=== PATIENT | male | born 1975 | race Caucasian/White ===

== ENCOUNTER 2020-04-29 11:48 | Outpatient (REF) | payer MEDICARE, MEDICAID, SELFPAY ==
--- NOTE | 2020-04-29 11:57 | ECG_ITS ---
Test Reason : HIGH RISK MEDICATION Blood Pressure : / mmHG Vent. Rate : 094 BPM Atrial Rate : 094 BPM P-R Int : 136 ms QRS Dur : 082 ms QT Int : 348 ms P-R-T Axes : 076 081 038 degrees QTc Int : 435 ms Normal sinus rhythm Normal ECG When compared with ECG of 27-AUG-2019 13:00, No significant change was found Referred By: Alex Bacon Electronically Signed By:KAM RIZZO
[2020-04-29 13:34] LABS: MANUAL DIFF FLAG NO
[2020-04-29 13:52] LABS: Basophils Absolute Auto 0.1 X10*3/uL (0.0-0.2); Basophils Percent Auto 0.7 % (0-2); Eosinophils Absolute Auto 0.3 X10*3/uL (0.0-0.4); Eosinophils Percent Auto 3.1 % (0-4); Hematocrit 46.9 % (42-52); Hemoglobin 16.2 g/dl (14.0-18.0); Imm Gran Abs Auto 0.02 X10*3/uL (0.00-0.03); Imm Gran Pct Auto 0.2 % (0.0-0.4); Lymphocytes Absolute Auto 1.1 X10*3/uL (1.2-4.9); Lymphocytes Percent Auto 13.5 % (20-40); Mean Corpuscular HGB Conc 34.5 g/dl (31.0-36.0); Mean Corpuscular Hemoglobin 33.1 pg (27.0-33.0); Mean Corpuscular Volume 95.9 fL (80-98); Mean Platelet Volume 9.4 fL (9.4-12.4); Monocytes Absolute Auto 0.5 X10*3/uL (0.1-1.2); Monocytes Percent Auto 6.2 % (2-11); Neutrophils Absolute Auto 6.2 X10*3/uL (2.0-8.3); Neutrophils Percent Auto 76.3 % (45-73); Platelet Count 304 X10*3/uL (160-400); Red Blood Count 4.89 X10*6/uL (4.60-5.80); Red Cell Distribution Width 11.4 % (11.0-16.0); White Blood Count 8.1 X10*3/uL (4.8-10.8)
[2020-04-29 14:07] LABS: Estimated Average Glucose 97 mg/dL; Hemoglobin A1C 134.0023 umol/L
[2020-04-29 14:12] LABS: Cholesterol 183 mg/dL; HDL Cholesterol 46 mg/dL; LDL Cholesterol Calculated 105 mg/dl; Triglycerides 162 mg/dL
[2020-04-30 17:08] LABS: Prolactin 12.8 ng/mL (2.0-18.0)
== END 2020-04-29 11:49 | disposition home or self-care (01) ==
LOC: HO.LAB 11:48
PROVIDERS: Visit Provider Psychiatry & Neurology Child & Adolescent Psychiatry
DX: F41.1 Generalized anxiety disorder (principal); Z79.899 Other long term (current) drug therapy
CPT/HCPCS: 36415; 80061; 83036; 84146; 85025; 93005

== ENCOUNTER 2022-01-10 18:50 | Emergency (ER) | payer MEDICARE, MEDICAID, SELFPAY ==
--- NOTE | 2022-01-10 19:07 | ED.ALLEREA ---
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 Caregiver provided patient's EpiPen and EMS provided 50 mg of Benadryl IM and noted that before the Benadryl he had some mild wheezing and the hives and afterwards the wheezing resolved. Related Data Previous Rx's Medication Instructions Recorded epinephrine 0.3 mg/0.3 mL 0.3 mg (0.3 mL) IM Q5M PRN 01/10/22 injection, auto-injector (EpiPen anaphylaxis #2 ea 2-Greg) Allergies Allergy/AdvReac Type Severity Reaction Status Date / Time peanut [PEANUT] Allergy Severe ANAPHYLAXIS Unverified 12/10/19 14:42 tree nut [TREE NUT] Allergy Severe ANAPHYLAXIS Unverified 12/10/19 14:42 mustard [MUSTARDS] Allergy Unknown HIVES Unverified 12/10/19 14:42 sesame seed [SESAME SEED] Allergy Unknown HIVES Unverified 12/10/19 14:42 shellfish derived Allergy Unknown HIVES Unverified 12/10/19 14:42 [SHELLFISH DERIVED] walnut [WALNUT] Allergy Unknown UNK Unverified 12/10/19 14:42 Review of Systems Review of Systems: Pertinent positives and negatives as stated in HPI 10 point review of systems is otherwise negative. PMFSH Past Medical History Source: nursing notes reviewed Physical Exam ED Vital Signs: Vital Signs - 24 hr 01/10/22 19:16 01/10/22 20:04 Temperature 97.9 F Pulse Rate 93 88 Respiratory Rate 20 18 Blood Pressure 122/77 115/69 Pulse Oximetry 97 98 Oxygen Delivery Method Room Air Room Air BMI result Body Mass Index 26.7 VITAL SIGNS: Reviewed. GENERAL: Well developed, well nourished, in no acute distress. HEAD: Normocephalic/atraumatic EYES: PERRLA, EOMI, mild periorbital swelling EARS: Ext canals without abnormality OROPHARYNX: no oral lesions noted, posterior pharynx clear, no tongue or lip swelling NECK: Supple, no adenopathy LUNGS: Normal breath sounds, no wheeze, no stridor. SpO2<97> CARDIOVASCULAR: Regular rate and rhythm without noted murmurs ABDOMEN: Soft, non-tender, non-distended with bowel sounds. MUSCULOSKELETAL: No tenderness, deformities, or effusions noted on gross inspection. EXTREMITIES: No cyanosis, clubbing or edema. SKIN: Inspection of the skin reveals no rashes NEUROLOGIC: Alert and strength and sensation to light touch were grossly intact x 4. Course Course Course Narrative: 46-year-old male with history and clinical presentation consistent with allergic reaction to mustard, received EpiPen as well as IM Benadryl and will be observed for 4 hours from 1800. Patient has some mild periorbital swelling but no other evidence to suggest angioedema or anaphylaxis. The hives have completely resolved. Patient signed out to Dr. Hernadez. Patient remains hemodynamically stable and without evidence of angioedema or anaphylaxis. Discharge Plan Discharge Clinical Impression: Allergic reaction Patient Disposition: Still a Patient Instructions: General Allergic Reaction (ED) Additional Instructions: Return to the ER for any recurrence of symptoms. Prescriptions: New epinephrine [EpiPen 2-Greg] 0.3 mg/0.3 mL auto-injector 0.3 mg IM Q5M PRN (Reason: anaphylaxis) Qty: 2 0RF
[2022-01-10 19:16] VITALS: BP 122/76; BP 122/77; PULSE 91; PULSE 93; RESP 20; TEMP 36.6; O2SAT 97; O2SAT 98; BMI 26.7
[2022-01-10 20:04] VITALS: BP 115/69; PULSE 88; RESP 18; O2SAT 98
--- NOTE | 2022-01-10 20:05 | PC.NURSE ---
Pt VSS, resting comfortably in bed at this time. Pt denies any CP or SOB. Skin is PWD with no signs of hives or rash.
--- OUTSIDE RECORDS SUMMARY | 2022-01-10 20:20 | XMS_ITS | Continuity of Care Document ---
:1975 Author Organization [facility] Address [address] [place] [address]- Care Team Providers Name Role Phone Jose Ulloa MD Primary Care Physician Encounter [facility] Date(s): 08/20/19 - 08/27/19 [facility] [address] [place] [address]- Attending Physician: Jose Ulloa MD Allergies, Adverse Reactions, Alerts Substance Reaction Severity Status shellfish Active Fish Active Lobster Active Nuts not confirmed with allergy tests Active Immunizations Given and Recorded Vaccine Date Status Refusal Reason influenza virus vaccine, inactivated1 12/18/18 Given influenza virus vaccine, inactivated2 03/06/18 Given influenza virus vaccine, inactivated3 02/02/15 Given influenza virus vaccine, inactivated 02/15/14 Given influenza virus vaccine, inactivated4 02/12/13 Given influenza virus vaccine, inactivated5 01/09/12 Given influenza virus vaccine, inactivated6 01/26/11 Given Afluria (oldterm)7 02/28/17 Given tetanus/diphtheria/pertussis, acel(Tdap)8 01/09/12 Given Hepatitis B Vaccine (old term)9 11/08/11 Given Hepatitis B Vaccine (old term)10 06/07/11 Given hepatitis B adult [id number] 05/09/11 Given Pneumococcal Vaccine (oldterm) 03/25/05 Given tetanus-diphtheria toxoids (Td) 03/25/03 Given 1Result Comment: [id number] Comment: [03/06/2018] [id number] Comment: [02/02/2015] all screening questions [id number] Note: vis Admin Note: vis [id number] Note: VIS:Result Comment: [02/28/2017] [facility]: [id number] Note: VIS [id number] Note: VIS [id number] Note: VIS given11 Admin Note: VIS [address] dose Medications acetaminophen 325 mg oral tablet 650 mg, 2, tablet, By Mouth, Every 8 hours, PRN, not to exceed 4000 mg/day Call after 72 hours if not resolved, # 18 tablet, Refills 5, Tot. Refills 5, Maintenance, for fever, 06/11/19 9:27:00 EDT, Route to Pharmacy Electronically, [facility]-... Start Date: 06/11/19 Stop Date: 06/29/19 Status: OrderedAmmonium Lactate 12% Topical Topically, 2 times a day, 0 Refills, Maintenance Start Date: 02/28/17 Status: Orderedbacitracin topical 500 u/gm ointment See Instructions, APPLY A THIN LAYER TWICE A DAY NEEDED FOR MINOR CUTS AND SCRAPES TO PREVENT INFECTI, # 28 Gm, 1 Refills, Acute, [facility], 15, APPLY A THIN LAYER TWICE A DAY NEEDEDFOR MINOR CUTS AND SCRAPES TO PREVENT INFECTI, 16... Start Date: 05/24/19 Status: OrderedBetamethasone Valerate 0.1% Lotion Topically, 2 times a day, 0 Refills, Maintenance, 02/28/17 15:21:03 Start Date: 02/28/17 Status: Orderedcalamine-pramoxine 3%-1% topical lotion 1 application, Topically, 4 times a day, PRN as needed for itching, apply to affected area 4 times aday x 10 days, # 118 mL, 0 Refills, Maintenance, 09/05/18 8:51:29 EDT, Lotion, 1 application Topically 4 times a day,PRN:as needed for itching,Instr:a... Start Date: 09/05/18 Status: OrderedCeleXA 20 mg oral tablet 20 mg, 1, tablet, By Mouth, Daily at bedtime, Decrease celexa from 40 mg to 20 mg daily at bedtime, # 30 tablet, Refills 2, Tot. Refills 2, Maintenance, 08/20/19 15:32:00 EDT, Route to Pharmacy Electronically, [facility]-[id number], 166,... Start Date: 08/20/19 Status: OrderedCelexa Tablet 60 mg, Daily at bedtime, Refills 0, Tot. Refills 0, Maintenance, 06/06/06 14:39:21 Start Date: 06/06/06 Status: OrderedClaritin 10 mg oral tablet 10 mg, 1, tablet, By Mouth, Daily at bedtime, # 30 tablet, Refills 11, Tot. Refills 11, Maintenance,12/18/18 10:07:43 EDT, Route to Pharmacy Electronically, [facility]-[id number], [facility] Start Date: 12/18/18 Status: OrderedDesenex Foot 2% powder 1 application, Topically, 2 times a day, to affected area, # 90 Gm, 0 Refills, Maintenance, 198:52:49 EDT, Powder, 1 application Topically 2 times a day,Instr:to affected area Start Date: 09/05/18 Status: OrderedEpiPen 2-Greg 0.3 mg injectable kit See Instructions, Intramuscular Once in case of life threatening allergy, # 1 each, 1 Refills, Soft Stop, 03/06/18 11:43:51 EST Start Date: 03/06/18 Status: OrderedFiber Lax 625 mg oral tablet 625 mg, By Mouth, Daily, take one tablet every day by mouth at 4 pm, # 30 each, 11 Refills, Maintenance, 12/18/18 10:07:40 EDT Start Date: 12/18/18 Status: OrderedFlonase 50 mcg/inh nasal spray 1 sprays, Nares, Both, 2 times a day, in each nostril, # 2 each, 0 Refills, Maintenance, 09/05/18 8:52:13 EDT, [facility] [place], 1 sprays Nares, Both 2 times a day,x30 days,Instr:in each nostril Start Date: 09/05/18 Stop Date: 10/05/18 Status: OrderedImodium A-D 2 mg oral tablet 2 mg, 1, tablet, By Mouth, 3 times a day, PRN, # 30 tablet, Refills 3, Tot. Refills 3, Maintenance, Loose Stool, 05/10/17 14:08:46 EST, Print Requisition Start Date: 2/16/18 Status: OrderedImodium A-D 2 mg oral tablet 2 mg, 1, tablet, By Mouth, 3 times a day, Take 1 tablet PO q4h for loose stools, not to exceed 3 doses daily., # 30 tablet, Refills 0, Tot. Refills 0, Maintenance, 09/05/18 8:52:32 EDT, Route to Pharmacy Electronically, [facility]- [id number], [facility]... Start Date: 09/05/18 Status: Orderedlisinopril 10 mg oral tablet 10 mg, 1, tablet, By Mouth, Daily, # 30 tablet, Refills 11, Tot. Refills 11, Maintenance, 12/18/18 10:07:42 EDT, Route to Pharmacy Electronically, [facility]_ID- [id number], [facility] Start Date: 12/18/18 Status: OrderedLubriderm Daily Moisturizer topical lotion 1 application, Topically, 2 times a day, PRN for dry skin, # 360 mL, 0 Refills, Maintenance, 09/05/18 8:52:02 EDT, Lotion, 1 application Topically 2 times a day,x30 days,PRN:for dry skin Start Date: 09/05/18 Stop Date: 10/05/18 Status: OrderedRisperDAL 0.5 mg oral tablet See Instructions, PRN, tab BID, # 60 each, Refills 0, Tot. Refills 0, Maintenance, take at 4pm and 7pm, 09/05/18 8:53:06 EDT, Instructions Replace Required Details, Route to Pharmacy Electronically, [facility]_ID-[id number], [facility] Start Date: 09/05/18 Status: OrderedVitamin D3 1000 intl units oral capsule See Instructions, 1 capsule By Mouth Daily in pm, # 30 tablet, 11 Refills, Maintenance, 12/18/18 10:07:41 EDT, Capsule Start Date: 12/18/18 Status: Ordered Problem List Condition Effective Dates Status Health Status Informant Anemia(Confirmed) Active Asthma(Confirmed) Active Atopic eczema(Confirmed) Active Autistic disorder(Confirmed) Active Eruption(Confirmed) Active External hemorrhoids(Confirmed) Active High triglycerides(Confirmed) 04/16/12 Active HTN - Hypertension(Confirmed) Active Mental retardation(Confirmed) Active Tinea corporis(Confirmed) 05/19/12 Active Social History Social History Type Response Smoking Status Never smoker entered on: 08/01/16 Sex
--- OUTSIDE RECORDS SUMMARY | 2022-01-10 20:20 | XMS_ITS | Continuity of Care Document ---
:1975 Author Organization [facility] Address [address] [place] [address]- Care Team Providers Name Role Phone Jose Ulloa MD Primary Care Physician Encounter [facility] Date(s): 06/03/20 - 07/03/20 [facility] [address] [place], [place] [address] Allergies, Adverse Reactions, Alerts Substance Reaction Severity [...] (old term)10 06/07/11 Given hepatitis B adult [id number] 05/09/11 Given Pneumococcal Vaccine (oldterm) 03/25/05 Given tetanus-diphtheria toxoids (Td) 03/25/03 Given 1Result Comment: [id number] Comment: [03/06/2018] [id number] Comment: [02/02/2015] all screening questions [id number] Note: vis Admin Note: vis [id number] Note: VIS:Result Comment: [02/28/2017] [facility]: [id number] Note: VIS [id number] Note: VIS [id number] Note: VIS given11 Admin Note: VIS [address] dose Medications acetaminophen 325 mg oral tablet 650 mg, 2, tablet, By Mouth, Every 8 hours, PRN, not to exceed 4000 mg/day Call after 72 hours if not resolved, # 18 tablet, Refills 5, Tot. Refills 5, Maintenance, for fever, 06/11/19 9:27:00 EDT, Route to Pharmacy Electronically, [facility]-... Start Date: 06/11/19 Stop Date: 06/29/19 Status: OrderedAmmonium Lactate 12% Topical Topically, 2 times a day, 0 Refills, Maintenance Start Date: 02/28/17 Status: Orderedbacitracin topical 500 u/gm ointment See Instructions, APPLY A THIN LAYER TWICE A DAY NEEDED FOR MINOR CUTS AND SCRAPES TO PREVENT INFECTI, # 28 Gm, 1 Refills, Physician Stop 05/24/21 12:00:00 EST, 06/15/20 9:09:00 EDT, [facility]-[id number], 15, APPLY A THIN LAYER TWICE... Start Date: 06/15/20 Stop Date: 05/24/21 Status: OrderedBetamethasone Valerate 0.1% Lotion Topically, 2 [...] needed for itching,Instr:a... Start Date: 09/05/18 Status: Orderedcitalopram 20 mg oral tablet 1 tablet, By Mouth, Daily at bedtime, # 28 tablet, 12 Refills, Maintenance, 06/14/20 14:20:00 EDT, [facility]-[id number], 166, cm, 12/29/19 11:45:00 EDT, Height Start Date: 06/14/20 Status: OrderedDesenex Foot 2% powder 1 application, [...] mouth at 4 pm, # 30 each, 5 Refills, Maintenance, 06/21/20 12:01:00 EDT, [facility]- [id number], 166, cm, 12/29/19 11:45:00 EDT, Height Start Date: 06/21/20 Status: OrderedFlonase 50 mcg/inh nasal spray 1 sprays, Nares, Both, 2 times a day, in each nostril, # 2 each, 0 Refills, Maintenance, 09/05/18 8:52:13 EDT, [place], 1 sprays Nares, Both 2 times a day,x30 days,Instr:in each nostril Start Date: 09/05/18 Stop Date: 10/05/18 Status: OrderedImodium A-D 2 mg oral tablet 2 mg, 1, tablet, By Mouth, 3 times a day, Take 1 tablet PO q4h for loose stools, not to exceed 3 doses daily., # 30 tablet, Refills 0, Tot. Refills 0, Maintenance, 06/14/20 15:46:00 EDT, Route to Pharmacy Electronically, [facility]... Start Date: 06/14/20 Status: OrderedImodium A-D 2 mg oral tablet 2 mg, 1, tablet, By Mouth, 3 times a day, PRN, # 30 tablet, Refills 3, Tot. Refills 3, Maintenance, Loose Stool, 05/10/17 14:08:46 EST, Print Requisition Start Date: 05/10/17 Status: Orderedlisinopril 10 mg oral tablet 10 mg, 1, tablet, By Mouth, Daily, # 30 tablet, Refills 5, Tot. Refills 5, Maintenance, 06/24/20 10:49:00 EDT, Route to Pharmacy Electronically, [facility], 166, cm, 12/29/19 11:45:00 EDT, Height Start Date: 06/24/20 Status: OrderedLubriderm Daily Moisturizer topical lotion 1 application, Topically, 2 times a day, PRN for dry skin, # 360 mL, 0 Refills, Maintenance, 09/05/18 8:52:02 EDT, Lotion, 1 application Topically 2 times a day,x30 days,PRN:for dry skin Start Date: 09/05/18 Stop Date: 10/05/18 Status: Orderedohm Allergy Relief 10 mg oral tablet 1 tablet, By Mouth, Daily at bedtime, # 28 tablet, 12 Refills, Maintenance, 06/14/20 14:20:00 EDT, [facility], 166, cm, 12/29/19 11:45:00 EDT, Height Start Date: 06/14/20 Status: OrderedRisperDAL 0.5 mg oral tablet See Instructions, PRN, tab BID, # 60 each, Refills 0, Tot. Refills 0, Maintenance, take at 4pm and 7pm, 06/21/20 12:01:00 EDT, Instructions Replace Required Details, Route to Pharmacy Electronically, [facility], 166, cm, ... Start Date: 06/21/20 Status: OrderedVitamin D3 1000 intl units oral capsule See Instructions, 1 capsule By Mouth Daily in pm, # 30 tablet, 5 Refills, Maintenance, 01/27/20 9:56:00 EST, Capsule, [facility], 166, cm, 12/29/19 11:45:00 EDT, Height Start Date: 01/27/20 Status: Ordered Problem List Condition Effective Dates Status Health Status Informant Anemia(Confirmed) Active Asthma(Confirmed) Active Atopic eczema(Confirmed) Active Autistic disorder(Confirmed) Active Eruption(Confirmed) Active External hemorrhoids(Confirmed) Active High triglycerides(Confirmed) 04/16/12 Active HTN - Hypertension(Confirmed) Active Mental retardation(Confirmed) Active Tinea corporis(Confirmed) 05/19/12 Active Social History Social History Type Response Smoking Status Never smoker entered on: 08/01/16 Sex
--- OUTSIDE RECORDS SUMMARY | 2022-01-10 20:20 | XMS_ITS | Continuity of Care Document ---
:1975 Author Organization [facility] Address [address] [place] [address]- Care Team Providers Name Role Phone Jose Ulloa MD Primary Care Physician Encounter [facility] Date(s): 01/03/20 - 02/02/20 [facility] [address], [place] [address] Allergies, Adverse Reactions, Alerts Substance Reaction [...] (old term)10 06/07/11 Given hepatitis B adult [id number] 05/09/11 Given Pneumococcal Vaccine (oldterm) 03/25/05 Given tetanus-diphtheria toxoids (Td) 03/25/03 Given 1Result Comment: [id number] Comment: [03/06/2018] [id number] Comment: [02/02/2015] all screening questions [id number] Note: vis Admin Note: vis [id number] Note: VIS:Result Comment: [02/28/2017] [facility]: [id number] Note: VIS [id number] Note: VIS [id number] Note: VIS given11 Admin Note: VIS [address] dose Medications acetaminophen 325 mg oral tablet 650 mg, 2, tablet, By Mouth, Every 8 hours, PRN, not to exceed 4000 mg/day Call after 72 hours if not resolved, # 18 tablet, Refills 5, Tot. Refills 5, Maintenance, for fever, 06/11/19 9:27:00 EDT, Route to Pharmacy Electronically, [facility]-... Start Date: 06/11/19 Stop Date: 06/29/19 Status: OrderedAmmonium Lactate 12% Topical Topically, 2 times a day, 0 Refills, Maintenance Start Date: 02/28/17 Status: Orderedbacitracin topical 500 u/gm ointment See Instructions, APPLY A THIN LAYER TWICE A DAY NEEDED FOR MINOR CUTS AND SCRAPES TO PREVENT INFECTI, # 28 Gm, 1 Refills, Acute, [facility]-[id number], 15, APPLY A THIN LAYER TWICE A [...] daily at bedtime, # 30 tablet, Refills 5, Tot. Refills 5, Maintenance, 01/14/20 7:35:00 EDT, Route to Pharmacy Electronically, [facility]-[address], 166, c... Start Date: 01/14/20 Status: OrderedCelexa Tablet 60 mg, Daily at bedtime, Refills 0, Tot. Refills 0, Maintenance, 06/06/06 14:39:21 Start Date: 06/06/06 Status: OrderedClaritin 10 mg oral tablet 10 mg, 1, tablet, By Mouth, Daily at bedtime, # 30 tablet, Refills 5, Tot. Refills 5, Maintenance, 12/30/19 14:05:00 EDT, Route to Pharmacy Electronically, [facility], 166, cm, 12/29/19 11:45:00 EDT, Height Start Date: 12/30/19 Status: OrderedDesenex Foot 2% powder 1 application, [...] pm, # 30 each, 5 Refills, Maintenance, 01/18/20 12:10:00 EDT, [facility] [address], 166, cm, 12/29/19 11:45:00 EDT, Height Start Date: 01/18/20 Status: OrderedFlonase 50 mcg/inh nasal spray 1 sprays, Nares, Both, 2 times a day, in each nostril, # 2 each, 0 Refills, Maintenance, 09/05/18 8:52:13 EDT, [place], 1 sprays Nares, Both 2 times a day,x30 days,Instr:in each nostril Start Date: 09/05/18 Stop Date: 10/05/18 Status: OrderedImodium A-D 2 mg oral tablet 2 mg, 1, tablet, By Mouth, 3 times a day, PRN, # 30 tablet, Refills 3, Tot. Refills 3, Maintenance, Loose Stool, 05/10/17 14:08:46 EST, Print Requisition Start Date: 05/10/17 Status: OrderedImodium A-D 2 mg oral tablet 2 mg, 1, tablet, By Mouth, 3 times a day, Take 1 tablet PO q4h for loose stools, not to exceed 3 doses daily., # 30 tablet, Refills 0, Tot. Refills 0, Maintenance, 09/05/18 8:52:32 EDT, Route to Pharmacy Electronically, [facility]- [id number], [facility] Start Date: 09/05/18 Status: Orderedlisinopril 10 mg oral tablet 10 mg, 1, tablet, By Mouth, Daily, # 30 tablet, Refills 5, Tot. Refills 5, Maintenance, 01/26/20 13:34:00 EST, Route to Pharmacy Electronically, [facility], 166, cm, 12/29/19 11:45:00 EDT, Height Start Date: 01/26/20 Status: OrderedLubriderm Daily Moisturizer topical lotion 1 [...] Replace Required Details, [id number] Start Date: 09/05/18 Status: OrderedVitamin D3 1000 intl units oral capsule See Instructions, 1 capsule By Mouth Daily in pm, # 30 tablet, 5 Refills, Maintenance, 01/27/20 9:56:00 EST, Capsule, [facility], 166, cm, 12/29/19 11:45:00 EDT, Height Start [...]
--- OUTSIDE RECORDS SUMMARY | 2022-01-10 20:20 | XMS_ITS | Continuity of Care Document ---
:1975 Author Organization [facility] Address [address] [place] [address]- Care Team Providers Name Role Phone Jose Ulloa MD Primary Care Physician Encounter [facility] Date(s): 07/22/20 - 08/21/20 [facility] [address] [place], [place] [address] Allergies, Adverse Reactions, Alerts Substance Reaction Severity [...] (old term)10 06/07/11 Given hepatitis B adult 05/09/11 Given Pneumococcal Vaccine (oldterm) 03/25/05 Given tetanus-diphtheria toxoids (Td) 03/25/03 Given 1Result Comment: [id number] Comment: [03/06/2018] [id number] Comment: [02/02/2015] all screening questions [id number] Note: vis Admin Note: vis [id number] Note: VIS:Result Comment: [02/28/2017] [facility]: [id number] Note: VIS [id number] Note: VIS [id number] Note: VIS given11 Admin Note: VIS [address] dose Medications acetaminophen 325 mg oral tablet 650 mg, 2, tablet, By Mouth, Every 8 hours, PRN, not to exceed 4000 mg/day Call after 72 hours if not resolved, # 18 tablet, Refills 5, Tot. Refills 5, Maintenance, for fever, 06/11/19 9:27:00 EDT, Route to Pharmacy Electronically, [facility], [place]-... Start Date: 06/11/19 Stop Date: 06/29/19 Status: OrderedAmmonium Lactate 12% Topical Topically, 2 times a day, 0 Refills, Maintenance Start Date: 02/28/17 Status: Orderedbacitracin topical 500 u/gm ointment See Instructions, APPLY A THIN LAYER TWICE A DAY NEEDED FOR MINOR CUTS AND SCRAPES TO PREVENT INFECTI, # 28 Gm, 1 Refills, Physician Stop 05/24/21 12:00:00 EST, 06/15/20 9:09:00 EDT, [facility]-21932, 15, APPLY A THIN LAYER TWICE... Start Date: 06/15/20 Stop Date: 05/24/21 Status: OrderedBetamethasone Valerate 0.1% Lotion Topically, 2 times a day, 0 Refills, Maintenance, 02/28/17 15:21:03 Start Date: 02/28/17 Status: OrderedBriefs Briefs, See Instructions, # 90 each, Refills 11, Tot. Refills 11, Maintenance, Use Briefs 3 times a day for urinary incontinence, 08/11/20 8:10:00 EDT, Supply, 166, cm, 08/11/20 7:50:00 EDT, Height Start Date: 08/11/20 Status: Orderedcalamine-pramoxine 3%-1% topical lotion 1 application, [...] bedtime, # 28 tablet, 12 Refills, Maintenance, 07/14/20 13:11:00 EDT, [facility]-80084, 166, cm, 07/14/20 13:07:00 EDT, Height Start Date: 07/14/20 Status: OrderedDesenex Foot 2% powder 1 application, Topically, 2 times a day, to affected area, # 90 Gm, 0 Refills, Maintenance, 198:52:49 EDT, Powder, 1 application Topically 2 times a day,Instr:to affected area Start Date: 09/05/18 Status: OrderedEpiPen 2-Greg 0.3 mg injectable kit See Instructions, Intramuscular Once in case of life threatening allergy, # 2 each, 0 Refills, Soft Stop, 08/19/20 11:28:00 EDT, [facility]/pharmacy #1972, 166, cm, 08/11/20 7:50:00 EDT, Height Start Date: 08/19/20 Status: OrderedFiber Lax 625 mg oral tablet 625 mg, By Mouth, Daily, take one tablet every day by mouth at 4 pm, # 30 each, 5 Refills, Maintenance, 07/14/20 13:11:00 EDT, [facility]- 38498, 166, cm, 07/14/20 13:07:00 EDT, Height Start Date: 07/14/20 Status: Orderedfluticasone 50 mcg/inh nasal spray See Instructions, INSTILL 1 SPRAY INTO EACH NOSTRIL TWICE A DAY, # 16 Gm, 3 Refills, Maintenance, [place] [address], 30, INSTILL 1 SPRAY INTO EACH NOSTRIL TWICE A DAY, 166, cm, 07/14/20 13:07:00 EDT, Height Start Date: 07/24/20 Status: OrderedImodium A-D 2 mg oral tablet 2 mg, 1, tablet, By Mouth, 3 times a day, Take 1 tablet PO q4h for loose stools, not to exceed 3 doses daily., # 30 tablet, Refills 0, Tot. Refills 0, Maintenance, 07/14/20 13:11:00 EDT, Route to Pharmacy Electronically, [facility]-0... Start Date: 07/14/20 Status: OrderedImodium A-D 2 mg oral tablet 2 mg, 1, tablet, By Mouth, 3 times a day, PRN, # 30 tablet, Refills 3, Tot. Refills 3, Maintenance, Loose Stool, 05/10/17 14:08:46 EST, Print Requisition Start Date: 05/10/17 Status: Orderedlisinopril 10 mg oral tablet 10 mg, 1, tablet, By Mouth, Daily, # 30 tablet, Refills 5, Tot. Refills 5, Maintenance, 07/14/20 13:11:00 EDT, Route to Pharmacy Electronically, [facility], 166, cm, 07/14/20 13:07:00 EDT, Height Start Date: 07/14/20 Status: OrderedLubriderm Daily Moisturizer topical lotion 1 [...] bedtime, # 28 tablet, 12 Refills, Maintenance, 07/14/20 13:11:00 EDT, [facility]-05919, 166, cm, 07/14/20 13:07:00 EDT, Height Start Date: 07/14/20 Status: OrderedRisperDAL 0.5 mg oral tablet See Instructions, PRN, tab BID, # 60 each, Refills 0, Tot. Refills 0, Maintenance, take at 4pm and 7pm, 07/14/20 13:11:00 EDT, Instructions Replace Required Details, Route to Pharmacy Electronically, [facility]-26074, 166, cm, ... Start Date: 07/14/20 Status: OrderedVitamin D3 1000 intl units oral capsule See Instructions, 1 capsule By Mouth Daily in pm, # 30 tablet, 5 Refills, Maintenance, 07/14/20 13:11:00 EDT, Capsule, [facility]-46289, 166, cm, 07/14/20 13:07:00 EDT, Height Start Date: 07/14/20 Status: OrderedVitamin D3 1000 intl units oral tablet 1 tablet = 1,000 International_Units, By Mouth, Daily, with food, # 30 tablet, 11 Refills, Maintenance, 07/14/20 13:14:00 EDT, Tablet, [facility]-94945, Partial fill upon patient request if the prescription is for a schedule II opioi... Start Date: 07/14/20 Status: Ordered Problem List Condition Effective Dates Status Health Status Informant Anemia(Confirmed) Active Asthma(Confirmed) Active Atopic eczema(Confirmed) Active Autistic disorder(Confirmed) Active Eruption(Confirmed) Active External hemorrhoids(Confirmed) Active Functional urinary Active incontinence(Confirmed) High triglycerides(Confirmed) 04/16/12 Active HTN - Hypertension(Confirmed) Active Mental retardation(Confirmed) Active Tinea corporis(Confirmed) 05/19/12 Active Social History Social History Type Response Smoking Status Never smoker entered on: 08/01/16 Sex
--- OUTSIDE RECORDS SUMMARY | 2022-01-10 20:20 | XMS_ITS | Continuity of Care Document ---
:1975 Author Organization [facility] Address [address] [place] [address]- Care Team Providers Name Role Phone Jose Ulloa MD Primary Care Physician Encounter [facility] Date(s): 02/11/20 - 03/12/20 [facility] [address] [place], [place] [address] Allergies, Adverse Reactions, Alerts Substance Reaction Severity [...] (old term)10 06/07/11 Given hepatitis B adult [id number] 05/09/11 Given Pneumococcal Vaccine (oldterm) 03/25/05 Given tetanus-diphtheria toxoids (Td) 03/25/03 Given 1Result Comment: [id number] Comment: [03/06/2018] [id number] Comment: [02/02/2015] all screening questions [id number] Note: vis Admin Note: vis [id number] Note: VIS:Result Comment: [02/28/2017] [facility]: [id number] Note: VIS [id number] Note: VIS [id number] Note: VIS given11 Admin Note: VIS [address] dose Medications acetaminophen 325 mg oral tablet 650 mg, 2, tablet, By Mouth, Every 8 hours, PRN, not to exceed 4000 mg/day Call after 72 hours if not resolved, # 18 tablet, Refills 5, Tot. Refills 5, Maintenance, for fever, 06/11/19 9:27:00 EDT, Route to Pharmacy Electronically, [facility]-... Start Date: 06/11/19 Stop Date: 06/29/19 Status: OrderedAmmonium Lactate 12% Topical Topically, 2 times a day, 0 Refills, Maintenance Start Date: 02/28/17 Status: Orderedbacitracin topical 500 u/gm ointment See Instructions, APPLY A THIN LAYER TWICE A DAY NEEDED FOR MINOR CUTS AND SCRAPES TO PREVENT INFECTI, # 28 Gm, 1 Refills, Acute, [facility]-82297, 15, APPLY A THIN LAYER TWICE A [...] 01/14/20 7:35:00 EDT, Route to Pharmacy Electronically, [facility]-24818, 166, c... Start Date: 01/14/20 Status: OrderedCelexa Tablet 60 mg, Daily at bedtime, Refills 0, Tot. Refills 0, Maintenance, 06/06/06 14:39:21 Start Date: 06/06/06 Status: OrderedClaritin 10 mg oral tablet 10 mg, 1, tablet, By Mouth, Daily at bedtime, # 30 tablet, Refills 5, Tot. Refills 5, Maintenance, 12/30/19 14:05:00 EDT, Route to Pharmacy Electronically, [place] [id number], 166, cm, 12/29/19 11:45:00 EDT, Height Start [...] each, 5 Refills, Maintenance, 01/18/20 12:10:00 EDT, [facility]- 66245, 166, cm, 12/29/19 11:45:00 EDT, Height Start Date: 01/18/20 Status: OrderedFlonase 50 mcg/inh nasal spray 1 sprays, Nares, Both, 2 times a day, in each nostril, # 2 each, 0 Refills, Maintenance, 09/05/18 8:52:13 EDT, [place], 1 sprays Nares, Both 2 times a [...] 09/05/18 8:52:32 EDT, Route to Pharmacy Electronically, [facility] [id number], [facility]... Start Date: 09/05/18 Status: OrderedImodium A-D 2 mg oral tablet [...] 01/26/20 13:34:00 EST, Route to Pharmacy Electronically, [facility], 166, cm, 12/29/19 11:45:00 EDT, Height Start [...] Replace Required Details, Route to Pharmacy Electronically, [id number], [facility] Start Date: 09/05/18 Status: OrderedVitamin D3 1000 intl units oral capsule See Instructions, 1 capsule By Mouth Daily in pm, # 30 tablet, 5 Refills, Maintenance, 01/27/20 9:56:00 EST, Capsule, [facility]-95833, 166, cm, 12/29/19 11:45:00 EDT, Height Start [...]
--- OUTSIDE RECORDS SUMMARY | 2022-01-10 20:20 | XMS_ITS | Continuity of Care Document ---
:1975 Author Organization [facility] Address [address] [place] [address]- Care Team Providers Name Role Phone Jose Ulloa MD Primary Care Physician Encounter [facility] Date(s): 05/14/19 - 05/21/19 [facility] [address] [place] [address]- Attending Physician: Jose Ulloa MD Allergies, Adverse [...] (old term)10 06/07/11 Given hepatitis B adult [id number] 05/09/11 Given Pneumococcal Vaccine (oldterm) 03/25/05 Given tetanus-diphtheria toxoids (Td) 03/25/03 Given 1Result Comment: [id number] Comment: [03/06/2018] [id number] Comment: [02/02/2015] all screening questions [id number] Note: vis Admin Note: vis [id number] Note: VIS:Result Comment: [02/28/2017] [facility]: [id number] Note: VIS [id number] Note: VIS [id number] Note: VIS given11 Admin Note: VIS [address] dose Medications acetaminophen 325 mg oral tablet 650 mg, 2, tablet, By Mouth, Every 8 hours, PRN, not to exceed 4000 mg/day Call after 72 hours if not resolved, # 18 tablet, Refills 5, Tot. Refills 5, Maintenance, for fever, 10/04/17 15:43:47 EDT, Route to Pharmacy Electronically, [id number],... Start Date: 10/04/17 Stop Date: 10/22/17 Status: OrderedAmmonium Lactate 12% Topical Topically, 2 times a day, 0 Refills, Maintenance Start Date: 02/28/17 Status: Orderedbacitracin topical 500 u/gm ointment See Instructions, Thin layer PRN twice a day as needed for minor cuts and scrapes not to exceed 7 days., # 30 Gm, 0 Refills, Maintenance, 09/05/18 8:51:21 EDT, Thin layer PRN twice a day as needed for minor cuts and scrapes not to exceed 7 days. Start Date: 09/05/18 Status: OrderedBetamethasone Valerate 0.1% Lotion Topically, 2 [...] needed for itching,Instr:a... Start Date: 09/05/18 Status: OrderedCelexa Tablet 60 mg, Daily at bedtime, Refills 0, Tot. Refills 0, Maintenance, 06/06/06 14:39:21 Start Date: 06/06/06 Status: OrderedClaritin 10 mg oral tablet 10 mg, 1, tablet, By Mouth, Daily at bedtime, # 30 tablet, Refills 11, Tot. Refills 11, Maintenance,12/18/18 10:07:43 EDT, [id number] [place] [address] Start Date: 12/18/18 Status: OrderedDesenex Foot 2% [...] each, 0 Refills, Maintenance, 09/05/18 8:52:13 EDT, [place], 1 sprays Nares, Both 2 times a [...] 09/05/18 8:52:32 EDT, [id number]... Start Date: 09/05/18 Status: Orderedlisinopril 10 mg oral tablet 10 mg, 1, tablet, By Mouth, Daily, # 30 tablet, Refills 11, Tot. Refills 11, Maintenance, 12/18/18 10:07:42 EDT, Route to Pharmacy Electronically, [facility]- [id number], [place] [address] Start Date: 12/18/18 Status: OrderedLubriderm Daily Moisturizer [...] Replace Required Details, Route to Pharmacy Electronically, [facility]-[id number], [place] [address] Start Date: 09/05/18 Status: OrderedVitamin D3 1000 [...] Mental retardation(Confirmed) Active Tinea corporis(Confirmed) 05/19/12 Active Vital Signs Most recent to oldest [Reference Range]: 1 2 Height 166 cm 166 cm (05/14/19 1:27 PM) (05/14/19 1:06 PM) Weight 85.4 kg (05/14/19 1:06 PM) Oxygen Saturation [94-100 %] 97 % (2/20/20 1:06 PM) Pulse Rate [55-90 bpm] 88 bpm (05/14/19 1:06 PM) Body Mass Index [18.5-24.99] 30.99 *>HHI* (05/14/19 1:06 PM) Blood Pressure [90-138/55-84 mm Hg] 125/85 mm Hg 130/ 92 mm Hg (05/14/19 1:27 PM) (05/14/19 1:06 PM) Respiratory Rate [16-30 br/min] 16 br/min (05/14/19 1:06 PM) Temperature [96.8-100.4 DegF] 98.6 DegF (05/14/19 1:06 PM) Mode of Delivery (Oxygen) Room air (05/14/19 1:06 PM) Blood pressure sites Arm, left (05/14/19 1:06 PM) Social History Social History Type Response Smoking Status Never smoker entered on: 08/01/16 Sex
--- OUTSIDE RECORDS SUMMARY | 2022-01-10 20:20 | XMS_ITS | Continuity of Care Document ---
:1975 Author Organization [facility] Address [address] [place] [address]- Care Team Providers Name Role Phone Jose Ulloa MD Primary Care Physician Encounter [facility] Date(s): 10/24/20 - 12/02/20 [facility] [address] [place] [address]- Attending Physician: Jose Ulloa MD Allergies, Adverse [...] (old term)10 06/07/11 Given hepatitis B adult [id number] 05/09/11 Given Pneumococcal Vaccine (oldterm) 03/25/05 Given tetanus-diphtheria toxoids (Td) 03/25/03 Given 1Result Comment: [id number] Comment: [03/06/2018] [id number] Comment: [02/02/2015] all screening questions [id number] Note: vis Admin Note: vis [id number] Note: VIS:Result Comment: [02/28/2017] [facility]: [id number] Note: VIS [id number] Note: VIS [id number] Note: VIS given11 Admin Note: VIS [address] dose Medications acetaminophen 325 mg oral tablet 650 mg, 2, tablet, By Mouth, Every 8 hours, PRN, not to exceed 4000 mg/day Call after 72 hours if not resolved, # 18 tablet, Refills 5, Tot. Refills 5, Maintenance, for fever, 06/11/19 9:27:00 EDT, Route to Pharmacy Electronically, [facility]-... Start Date: 06/11/19 Stop Date: 06/29/19 Status: OrderedAmmonium Lactate 12% Topical Topically, 2 times a day, 0 Refills, Maintenance Start Date: 02/28/17 Status: Orderedammonium lactate 12% topical cream 1 application, Topically, 2 times a day, # 385 Gm, 5 Refills, Maintenance, 08/30/20 11:33:00 EDT, Cream, [facility]/pharmacy #1972, Partial fill upon patient request if the prescription is for a schedule II opioid drug., 1 application Topically 2 times a day... Start Date: 08/30/20 Status: Orderedbacitracin topical 500 u/gm ointment See Instructions, APPLY A THIN LAYER TWICE A DAY NEEDED FOR MINOR CUTS AND SCRAPES TO PREVENT INFECTI, # 28 Gm, 1 Refills, Physician Stop 05/24/21 12:00:00 EST, 06/15/20 9:09:00 EDT, [facility]-65883, 15, APPLY A THIN LAYER TWICE... Start [...] tablet, 12 Refills, Maintenance, 07/14/20 13:11:00 EDT, [facility]-44264, 166, cm, 07/14/20 13:07:00 EDT, Height Start [...] # 2 each, 0 Refills, Soft Stop, 09/23/20 9:31:00 EDT, [facility]/pharmacy #2566, 166, cm, 08/11/20 7:50:00 EDT, Height Start Date: 09/23/20 Status: OrderedFiber Lax 625 mg oral tablet 625 mg, By Mouth, Daily, take one tablet every day by mouth at 4 pm, # 30 each, 5 Refills, Maintenance, 07/14/20 13:11:00 EDT, [facility]- 51133, 166, cm, 07/14/20 13:07:00 EDT, Height Start Date: 07/14/20 Status: Orderedfluticasone 50 mcg/inh nasal spray See Instructions, INSTILL 1 SPRAY INTO EACH NOSTRIL TWICE A DAY, # 16 Gm, 3 Refills, Maintenance, [place] [id number], 30, INSTILL 1 SPRAY INTO EACH NOSTRIL [...] 07/14/20 13:11:00 EDT, Route to Pharmacy Electronically, [facility]-0... Start Date: 07/14/20 Status: OrderedImodium [...] 07/14/20 13:11:00 EDT, Route to Pharmacy Electronically, [facility]-51652, 166, cm, 07/14/20 13:07:00 EDT, Height Start [...] tablet, 12 Refills, Maintenance, 07/14/20 13:11:00 EDT, [facility]-03797, 166, cm, 07/14/20 13:07:00 EDT, Height Start Date: 07/14/20 Status: Orderedpimecrolimus topical cream 1 application, Topically, 2 times a day, apply and rub in well, # 30 Gm, 1 Refills, Maintenance, 08/30/20 11:34:00 EDT, Cream, [facility]/pharmacy #1972, Partial fill upon patient request if the prescription is for a schedule II opioid drug., 1 application T... Start Date: 08/30/20 Stop Date: 10/29/20 Status: OrderedrisperiDONE 0.5 mg oral tablet 1, tablet, By Mouth, 2 times a day, AT 4PM AND 7PM., # 56 tablet, Refills 12, Tot. Refills 0, Maintenance, 09/14/20 16:44:00 EDT, Route to Pharmacy Electronically, [place] [facility], 166, cm, 08/11/20 7:50:00 EDT, Height Start Date: 09/14/20 Status: OrderedVitamin D3 1000 intl units oral capsule See Instructions, 1 capsule By Mouth Daily in pm, # 30 tablet, 5 Refills, Maintenance, 07/14/20 13:11:00 EDT, Capsule, [facility]-62498, 166, cm, 07/14/20 13:07:00 EDT, Height Start Date: 07/14/20 Status: OrderedVitamin D3 1000 intl units oral tablet 1 tablet = 1,000 International_Units, By Mouth, Daily, with food, # 30 tablet, 11 Refills, Maintenance, 07/14/20 13:14:00 EDT, Tablet, [place] [facility] Partial fill upon patient request if the [...]
--- OUTSIDE RECORDS SUMMARY | 2022-01-10 20:20 | XMS_ITS | Continuity of Care Document ---
:1975 Author Organization [facility] Address [address] [place] [address]- Care Team Providers Name Role Phone Jose Ulloa MD Primary Care Physician Encounter [facility] Date(s): 03/07/20 - 04/06/20 [facility] [address] [place], [place] [address] Allergies, Adverse Reactions, Alerts [...] (old term)10 06/07/11 Given hepatitis B adult [id number] 05/09/11 Given Pneumococcal Vaccine (oldterm) 03/25/05 Given tetanus-diphtheria toxoids (Td) 03/25/03 Given 1Result Comment: [id number] Comment: [03/06/2018] [id number] Comment: [02/02/2015] all screening questions [id number] Note: vis Admin Note: vis [id number] Note: VIS:Result Comment: [02/28/2017] [facility]: [id number] Note: VIS [id number] Note: VIS [id number] Note: VIS given11 Admin Note: VIS [address] dose Medications acetaminophen 325 mg oral tablet 650 mg, 2, tablet, By Mouth, Every 8 hours, PRN, not to exceed 4000 mg/day Call after 72 hours if not resolved, # 18 tablet, Refills 5, Tot. Refills 5, Maintenance, for fever, 06/11/19 9:27:00 EDT, Route to Pharmacy Electronically, [facility]-... Start Date: 06/11/19 Stop Date: 06/29/19 Status: OrderedAmmonium Lactate 12% Topical Topically, 2 times a day, 0 Refills, Maintenance Start Date: 02/28/17 Status: Orderedbacitracin topical 500 u/gm ointment See Instructions, APPLY A THIN LAYER TWICE A DAY NEEDED FOR MINOR CUTS AND SCRAPES TO PREVENT INFECTI, # 28 Gm, 1 Refills, Acute, [facility]-37494, 15, APPLY A THIN LAYER TWICE A [...] 01/14/20 7:35:00 EDT, Route to Pharmacy Electronically, [facility]-60099, 166, c... Start Date: 01/14/20 Status: OrderedCelexa Tablet 60 mg, Daily at bedtime, Refills 0, Tot. Refills 0, Maintenance, 06/06/06 14:39:21 Start Date: 06/06/06 Status: OrderedClaritin 10 mg oral tablet 10 mg, 1, tablet, By Mouth, Daily at bedtime, # 30 tablet, Refills 5, Tot. Refills 5, Maintenance, 12/30/19 14:05:00 EDT, Route to Pharmacy Electronically, [place] [id number], 166, cm, 12/29/19 11:45:00 EDT, Height Start [...] each, 5 Refills, Maintenance, 01/18/20 12:10:00 EDT, [facility]- 60261, 166, cm, 12/29/19 11:45:00 EDT, Height Start Date: 01/18/20 Status: OrderedFlonase 50 mcg/inh nasal spray 1 sprays, Nares, Both, 2 times a day, in each nostril, # 2 each, 0 Refills, Maintenance, 09/05/18 8:52:13 EDT, [place], 1 sprays Nares, Both 2 times a [...] 8:52:32 EDT, Route to Pharmacy Electronically, [facility]- [id number], [facility]... Start Date: 09/05/18 Status: OrderedImodium [...] 01/26/20 13:34:00 EST, Route to Pharmacy Electronically, [facility]01, 166, cm, 12/29/19 11:45:00 EDT, Height Start [...] Replace Required Details, Route to Pharmacy Electronically, [id number], [facility] Start Date: 09/05/18 Status: OrderedVitamin D3 1000 intl units oral capsule See Instructions, 1 capsule By Mouth Daily in pm, # 30 tablet, 5 Refills, Maintenance, 01/27/20 9:56:00 EST, Capsule, [facility]-76344, 166, cm, 12/29/19 11:45:00 EDT, Height Start [...]
--- OUTSIDE RECORDS SUMMARY | 2022-01-10 20:20 | XMS_ITS | Continuity of Care Document ---
:1975 Author Organization [facility] Address [address] [place] [address]- Care Team Providers Name Role Phone Jose Ulloa MD Primary Care Physician Encounter [facility] Date(s): 06/15/20 - 07/15/20 [facility] [address] [place] [address], [place] [address] [place] Allergies, Adverse Reactions, Alerts Substance Reaction Severity [...] (old term)10 06/07/11 Given hepatitis B adult [id number] 05/09/11 Given Pneumococcal Vaccine (oldterm) 03/25/05 Given tetanus-diphtheria toxoids (Td) 03/25/03 Given 1Result Comment: [id number] Comment: [03/06/2018] [id number] Comment: [02/02/2015] all screening questions [id number] Note: vis Admin Note: vis [id number] Note: VIS:Result Comment: [02/28/2017] [facility]: [id number] Note: VIS [id number] Note: VIS [id number] Note: VIS given11 Admin Note: VIS [address] dose Medications acetaminophen 325 mg oral tablet 650 mg, 2, tablet, By Mouth, Every 8 hours, PRN, not to exceed 4000 mg/day Call after 72 hours if not resolved, # 18 tablet, Refills 5, Tot. Refills 5, Maintenance, for fever, 06/11/19 9:27:00 EDT, Route to Pharmacy Electronically, [facility]-... Start Date: 06/11/19 Stop Date: 06/29/19 Status: OrderedAmmonium Lactate 12% Topical Topically, 2 times a day, 0 Refills, Maintenance Start Date: 02/28/17 Status: Orderedbacitracin topical 500 u/gm ointment See Instructions, APPLY A THIN LAYER TWICE A DAY NEEDED FOR MINOR CUTS AND SCRAPES TO PREVENT INFECTI, # 28 Gm, 1 Refills, Physician Stop 05/24/21 12:00:00 EST, 06/15/20 9:09:00 EDT, [facility]-95444, 15, APPLY A THIN LAYER TWICE... Start [...] tablet, 12 Refills, Maintenance, 07/14/20 13:11:00 EDT, [facility]-03571, 166, cm, 07/14/20 13:07:00 EDT, Height Start [...] each, 5 Refills, Maintenance, 07/14/20 13:11:00 EDT, [facility]- 32712, 166, cm, 07/14/20 13:07:00 EDT, Height Start Date: 07/14/20 Status: OrderedFlonase 50 mcg/inh nasal spray 1 sprays, Nares, Both, 2 times a day, in each nostril, # 2 each, 0 Refills, Maintenance, 09/05/18 8:52:13 EDT, [place], 1 sprays Nares, Both 2 times a [...] 07/14/20 13:11:00 EDT, Route to Pharmacy Electronically, [facility]-0... Start Date: 07/14/20 Status: OrderedImodium A-D 2 [...] 07/14/20 13:11:00 EDT, Route to Pharmacy Electronically, [facility]51143, 166, cm, 07/14/20 13:07:00 EDT, Height Start [...] tablet, 12 Refills, Maintenance, 07/14/20 13:11:00 EDT, [facility]24990, 166, cm, 07/14/20 13:07:00 EDT, Height Start Date: 07/14/20 Status: OrderedRisperDAL 0.5 mg oral tablet See Instructions, PRN, tab BID, # 60 each, Refills 0, Tot. Refills 0, Maintenance, take at 4pm and 7pm, 07/14/20 13:11:00 EDT, Instructions Replace Required Details, Route to Pharmacy Electronically, [facility]42562, 166, cm, ... Start Date: 07/14/20 Status: OrderedVitamin D3 1000 intl units oral capsule See Instructions, 1 capsule By Mouth Daily in pm, # 30 tablet, 5 Refills, Maintenance, 07/14/20 13:11:00 EDT, Capsule, [facility]27972, 166, cm, 07/14/20 13:07:00 EDT, Height Start Date: 07/14/20 Status: OrderedVitamin D3 1000 intl units oral tablet 1 tablet = 1,000 International_Units, By Mouth, Daily, with food, # 30 tablet, 11 Refills, Maintenance, 07/14/20 13:14:00 EDT, Tablet, [facility]44067, Partial fill upon patient request if the [...]
--- OUTSIDE RECORDS SUMMARY | 2022-01-10 20:20 | XMS_ITS | Continuity of Care Document ---
:1975 Author Organization [facility] Address [address] [place] [address]- Care Team Providers Name Role Phone Jose Ulloa MD Primary Care Physician Encounter [facility] Date(s): 06/14/20 - 07/14/20 [facility] [address] [place], [place] [address] Allergies, Adverse Reactions, Alerts [...] (old term)10 06/07/11 Given hepatitis B adult [id number] 05/09/11 Given Pneumococcal Vaccine (oldterm) 03/25/05 Given tetanus-diphtheria toxoids (Td) 03/25/03 Given 1Result Comment: [id number] Comment: [03/06/2018] [id number] Comment: [02/02/2015] all screening questions [id number] Note: vis Admin Note: vis 8-9-574Lvbdw Note: VIS:Result Comment: [02/28/2017] ND: [id number] Note: VIS [id number] Note: VIS [id number] Note: VIS given11 Admin Note: VIS [address] dose Medications acetaminophen 325 mg oral tablet 650 mg, 2, tablet, By Mouth, Every 8 hours, PRN, not to exceed 4000 mg/day Call after 72 hours if not resolved, # 18 tablet, Refills 5, Tot. Refills 5, Maintenance, for fever, 06/11/19 9:27:00 EDT, Route to Pharmacy Electronically, [facility]-... Start Date: 06/11/19 Stop Date: 06/29/19 Status: OrderedAmmonium Lactate 12% Topical Topically, 2 times a day, 0 Refills, Maintenance Start Date: 02/28/17 Status: Orderedbacitracin topical 500 u/gm ointment See Instructions, APPLY A THIN LAYER TWICE A DAY NEEDED FOR MINOR CUTS AND SCRAPES TO PREVENT INFECTI, # 28 Gm, 1 Refills, Physician Stop 05/24/21 12:00:00 EST, 06/15/20 9:09:00 EDT, [facility]-08060, 15, APPLY A THIN LAYER TWICE... Start [...] tablet, 12 Refills, Maintenance, 07/14/20 13:11:00 EDT, [facility]-65861, 166, cm, 07/14/20 13:07:00 EDT, Height Start [...] each, 5 Refills, Maintenance, 07/14/20 13:11:00 EDT, [facility]- 28668, 166, cm, 07/14/20 13:07:00 EDT, Height Start Date: 07/14/20 Status: OrderedFlonase 50 mcg/inh nasal spray 1 sprays, Nares, Both, 2 times a day, in each nostril, # 2 each, 0 Refills, Maintenance, 09/05/18 8:52:13 EDT, [place], 1 sprays Nares, Both 2 times a [...] 07/14/20 13:11:00 EDT, Route to Pharmacy Electronically, [facility]-0... Start Date: 07/14/20 Status: OrderedImodium A-D [...] 07/14/20 13:11:00 EDT, Route to Pharmacy Electronically, [facility]13755, 166, cm, 07/14/20 13:07:00 EDT, Height Start [...] tablet, 12 Refills, Maintenance, 07/14/20 13:11:00 EDT, [facility]39784, 166, cm, 07/14/20 13:07:00 EDT, Height Start Date: 07/14/20 Status: OrderedRisperDAL 0.5 mg oral tablet See Instructions, PRN, tab BID, # 60 each, Refills 0, Tot. Refills 0, Maintenance, take at 4pm and 7pm, 07/14/20 13:11:00 EDT, Instructions Replace Required Details, Route to Pharmacy Electronically, [facility]32346, 166, cm, ... Start Date: 07/14/20 Status: OrderedVitamin D3 1000 intl units oral capsule See Instructions, 1 capsule By Mouth Daily in pm, # 30 tablet, 5 Refills, Maintenance, 07/14/20 13:11:00 EDT, Capsule, [facility]06119, 166, cm, 07/14/20 13:07:00 EDT, Height Start Date: 07/14/20 Status: OrderedVitamin D3 1000 intl units oral tablet 1 tablet = 1,000 International_Units, By Mouth, Daily, with food, # 30 tablet, 11 Refills, Maintenance, 07/14/20 13:14:00 EDT, Tablet, [facility]90606, Partial fill upon patient request if the [...]
--- OUTSIDE RECORDS SUMMARY | 2022-01-10 20:20 | XMS_ITS | Continuity of Care Document ---
:1975 Author Organization [facility] Address [address] [place] [address]- Care Team Providers Name Role Phone Jose Ulloa MD Primary Care Physician Encounter [facility] Date(s): 08/31/21 - 09/30/21 [facility] [address] [place] [address]- [place] Allergies, Adverse Reactions, Alerts Substance Reaction Severity [...] (old term)10 06/07/11 Given hepatitis B adult [id number] 05/09/11 Given Pneumococcal Vaccine (oldterm) 03/25/05 Given tetanus-diphtheria toxoids (Td) 03/25/03 Given 1Result Comment: [id number] Comment: [03/06/2018] [id number] Comment: [02/02/2015] all screening questions [id number] Note: vis Admin Note: vis 4-1-367Mxgoe Note: VIS:Result Comment: [02/28/2017] ND: [id number] Note: VIS [id number] Note: VIS ALWZV94Arxxh Note: VIS given11 Admin Note: VIS [address] dose Medications acetaminophen 325 mg oral tablet 650 mg, 2, tablet, By Mouth, Every 8 hours, PRN, not to exceed 4000 mg/day Call after 72 hours if not resolved, # 18 tablet, Refills 5, Tot. Refills 5, Maintenance, for fever, 06/11/19 9:27:00 EDT, Route to Pharmacy Electronically, [facility]-... Start Date: 06/11/19 Stop Date: 06/29/19 Status: OrderedAmmonium Lactate 12% Topical Topically, 2 times a day, 0 Refills, Maintenance Start Date: 02/28/17 Status: Orderedammonium lactate 12% topical cream 1 application, Topically, 2 times a day, # 385 Gm, 5 Refills, Maintenance, 08/30/20 11:33:00 EDT, Cream, [facility]/pharmacy #1972, Partial fill upon patient request if the prescription is for a schedule II opioid drug., 1 application Topically 2 times a day... Start Date: 08/30/20 Status: OrderedBetamethasone Valerate 0.1% Lotion Topically, 2 [...] tablet, 12 Refills, Maintenance, 07/14/20 13:11:00 EDT, [facility]-04063, 166, cm, 07/14/20 13:07:00 EDT, Height Start Date: 07/14/20 Status: OrderedD3-1000 25 MCG(1000 UT) CAPS D3-1000 25 MCG(1000 UT) CAPS, 1, capsule, By Mouth, Daily in PM, # 28 capsule, 0 Refills, 166, cm, 08/11/20 7:50:00 EDT, Height Start Date: 12/27/20 Status: OrderedD3-1000 25 MCG(1000 UT) CAPS D3-1000 25 MCG(1000 UT) CAPS, 1, capsule, By Mouth, Daily in PM, # 28 capsule, 11 Refills, 166, cm, 08/11/20 7:50:00 EDT, Height Start Date: 01/23/21 Status: OrderedDesenex Foot 2% powder 1 application, Topically, 2 times a day, to affected area, # 90 Gm, 0 Refills, Maintenance, 198:52:49 EDT, Powder, 1 application Topically 2 times a day,Instr:to affected area Start Date: 09/05/18 Status: OrderedEPINEPHrine 0.3 mg injectable solution See Instructions, DIRECTED FOR DERMATITIS FROM INGESTED FOOD, # 2 each, 0 Refills, [facility]29585, 166, cm, 08/11/20 7:50:00 EDT, Height Start Date: 09/06/21 Status: OrderedFiberlax 625 mg oral tablet 1 tablet, By Mouth, Daily, AT 4PM., # 28 tablet, 11 Refills, [facility] [address]5572, 166, cm, 08/11/20 7:50:00 EDT, Height Start Date: 01/23/21 Status: Orderedfluticasone 50 mcg/inh nasal spray See Instructions, INSTILL 1 SPRAY INTO EACH NOSTRIL TWICE A DAY, # 16 Gm, 5 Refills, [facility]69502, 30, INSTILL 1 SPRAY INTO EACH NOSTRIL TWICE A DAY, 166, cm, 08/11/20 7:50:00 EDT, Height Start Date: 08/13/21 Status: OrderedImodium A-D 2 mg oral tablet 2 mg, 1, tablet, By Mouth, 3 times a day, Take 1 tablet PO q4h for loose stools, not to exceed 3 doses daily., # 30 tablet, Refills 0, Tot. Refills 0, Maintenance, 07/14/20 13:11:00 EDT, Route to Pharmacy Electronically, [facility]-0... Start Date: 07/14/20 Status: OrderedImodium A-D 2 mg oral tablet 2 mg, 1, tablet, By Mouth, 3 times a day, PRN, # 30 tablet, Refills 3, Tot. Refills 3, Maintenance, Loose Stool, 05/10/17 14:08:46 EST, Print Requisition Start Date: 05/10/17 Status: Orderedlisinopril 10 mg oral tablet 1, tablet, By Mouth, Daily, # 28 tablet, Refills 0, Route to Pharmacy Electronically, [facility]16147, 166, cm, 08/11/20 7:50:00 EDT, Height Start Date: 09/06/21 Status: OrderedLubriderm Daily Moisturizer topical lotion 1 application, Topically, 2 times a day, PRN for dry skin, # 360 mL, 0 Refills, Maintenance, 09/05/18 8:52:02 EDT, Lotion, 1 application Topically 2 times a day,x30 days,PRN:for dry skin Start Date: 09/05/18 Stop Date: 10/05/18 Status: Orderedohm Allergy Relief 10 mg oral tablet 1 tablet, By Mouth, Daily at bedtime, # 28 tablet, 12 Refills, [facility] 18879, 166, cm, 08/11/20 7:50:00 EDT, Height Start Date: 08/13/21 Status: Orderedpimecrolimus topical cream 1 application, Topically, 2 times a day, apply and rub in well, # 30 Gm, 1 Refills, Maintenance, 08/30/20 11:34:00 EDT, Cream, [facility]/pharmacy #1972, Partial fill upon patient request if the prescription is for a schedule II opioid drug., 1 application T... Start Date: 08/30/20 Stop Date: 10/29/20 Status: OrderedrisperiDONE 0.5 mg oral tablet 1, tablet, By Mouth, 2 times a day, AT 4PM AND 7PM., # 56 tablet, Refills 12, Tot. Refills 0, Maintenance, 09/14/20 16:44:00 EDT, [facility], 166, cm, 08/11/20 7:50:00 EDT, Height Start Date: 09/14/20 Status: OrderedVitamin D3 1000 intl units oral capsule See Instructions, 1 capsule By Mouth Daily in pm, # 30 tablet, 5 Refills, Maintenance, 07/14/20 13:11:00 EDT, Capsule, [facility]-79754, 166, cm, 07/14/20 13:07:00 EDT, Height Start Date: 07/14/20 Status: OrderedVitamin D3 1000 intl units oral tablet 1 tablet = 1,000 International_Units, By Mouth, Daily, with food, # 30 tablet, 11 Refills, Maintenance, 07/14/20 13:14:00 EDT, Tablet, [facility], Partial fill upon patient request if the [...]
--- OUTSIDE RECORDS SUMMARY | 2022-01-10 20:20 | XMS_ITS | Continuity of Care Document ---
:1975 Author Organization [facility] [facility] Address [address] [place] [address]- Care Team Providers Name Role Phone Jose Ulloa MD Primary Care Physician Encounter [facility] Date(s): 12/27/20 - 01/26/21 [facility] [address] [place] [address]- [place] Allergies, Adverse Reactions, Alerts Substance Reaction [...] tetanus-diphtheria toxoids (Td) 03/25/03 Given 1Result Comment: [id number] Comment: [03/06/2018] [id number] Comment: [02/02/2015] all screening questions [id number] Note: vis Admin Note: vis [id number] Note: VIS:Result Comment: [02/28/2017] [facility]: [id number] Note: VIS ZRPEN7Mxbnv Note: VIS [id number] Note: VIS given11 Admin Note: VIS [address] dose Medications acetaminophen 325 mg oral tablet 650 mg, 2, tablet, By Mouth, Every 8 hours, PRN, not to exceed 4000 mg/day Call after 72 hours if not resolved, # 18 tablet, Refills 5, Tot. Refills 5, Maintenance, for fever, 06/11/19 9:27:00 EDT, Route to Pharmacy Electronically, [facility]-... Start Date: 06/11/19 Stop Date: 06/29/19 Status: OrderedAmmonium Lactate 12% Topical Topically, 2 times a day, 0 Refills, Maintenance Start Date: 02/28/17 Status: Orderedammonium lactate 12% topical cream 1 application, Topically, 2 times a day, # 385 Gm, 5 Refills, Maintenance, 08/30/20 11:33:00 EDT, Cream, [facility]/pharmacy #1972, Partial fill upon patient request [...] Stop 05/24/21 12:00:00 EST, 06/15/20 9:09:00 EDT, [facility]-32111, 15, APPLY A THIN LAYER TWICE... Start [...] tablet, 12 Refills, Maintenance, 07/14/20 13:11:00 EDT, [facility]-37348, 166, cm, 07/14/20 13:07:00 EDT, Height Start [...] area, # 90 Gm, 0 Refills, Maintenance, :52:49 EDT, Powder, 1 application Topically 2 times a day,Instr:to affected area Start Date: 09/05/18 Status: OrderedEpiPen 2-Greg 0.3 mg injectable kit See Instructions, Intramuscular Once in case of life threatening allergy, # 2 each, 0 Refills, Soft Stop, 09/23/20 9:31:00 EDT, [facility]/pharmacy #2566, 166, cm, 08/11/20 7:50:00 EDT, Height Start Date: 09/23/20 Status: OrderedFiberlax 625 mg oral tablet 1 tablet, By Mouth, Daily, AT 4PM., # 28 tablet, 11 Refills, [facility] 69925, 166, cm, 08/11/20 7:50:00 EDT, Height Start Date: 01/23/21 Status: Orderedfluticasone 50 mcg/inh nasal spray See Instructions, INSTILL 1 SPRAY INTO EACH NOSTRIL TWICE A DAY, # 16 Gm, 3 Refills, Maintenance, [facility]36001, 30, INSTILL 1 SPRAY INTO EACH NOSTRIL [...] 07/14/20 13:11:00 EDT, Route to Pharmacy Electronically, [facility]-0... Start Date: 07/14/20 Status: OrderedImodium A-D 2 mg oral tablet 2 mg, 1, tablet, By Mouth, 3 times a day, PRN, # 30 tablet, Refills 3, Tot. Refills 3, Maintenance, Loose Stool, 05/10/17 14:08:46 EST, Print Requisition Start Date: 05/10/17 Status: Orderedlisinopril 10 mg oral tablet 1, tablet, By Mouth, Daily, # 30 tablet, Refills 5, Tot. Refills 5, Maintenance, 12/27/20 9:52:00 EDT, Route to Pharmacy Electronically, [facility]-02922, 166, cm, 08/11/20 7:50:00 EDT, Height Start Date: 12/27/20 Status: OrderedLubriderm Daily Moisturizer topical lotion 1 [...] tablet, 12 Refills, Maintenance, 07/14/20 13:11:00 EDT, [facility]87146, 166, cm, 07/14/20 13:07:00 EDT, Height Start Date: 07/14/20 Status: Orderedpimecrolimus topical cream 1 application, Topically, 2 times a day, apply and rub in well, # 30 Gm, 1 Refills, Maintenance, 08/30/20 11:34:00 EDT, Cream, [facility]/pharmacy #1972, Partial fill upon patient request if the prescription is for a schedule II opioid drug., 1 application T... Start Date: 08/30/20 Stop Date: 10/29/20 Status: OrderedrisperiDONE 0.5 mg oral tablet 1, tablet, By Mouth, 2 times a day, AT 4PM AND 7PM., # 56 tablet, Refills 12, Tot. Refills 0, Maintenance, 09/14/20 16:44:00 EDT, Route to Pharmacy Electronically, [facility]84717, 166, cm, 08/11/20 7:50:00 EDT, Height Start Date: 09/14/20 Status: OrderedVitamin D3 1000 intl units oral capsule See Instructions, 1 capsule By Mouth Daily in pm, # 30 tablet, 5 Refills, Maintenance, 07/14/20 13:11:00 EDT, Capsule, [facility]54272, 166, cm, 07/14/20 13:07:00 EDT, Height Start Date: 07/14/20 Status: OrderedVitamin D3 1000 intl units oral tablet 1 tablet = 1,000 International_Units, By Mouth, Daily, with food, # 30 tablet, 11 Refills, Maintenance, 07/14/20 13:14:00 EDT, Tablet, [facility]-69303, Partial fill upon patient request if the [...]
--- OUTSIDE RECORDS SUMMARY | 2022-01-10 20:21 | XMS_ITS | Continuity of Care Document ---
:1975 Author Organization [facility] Address [address] [place] [address]- Care Team Providers Name Role Phone Jose Ulloa MD Primary Care Physician Encounter [facility] Date(s): 10/23/19 - 11/22/19 [facility] [address] [place] [address]- Allergies, Adverse Reactions, Alerts Substance Reaction Severity [...] (old term)10 06/07/11 Given hepatitis B adult [id number] 05/09/11 Given Pneumococcal Vaccine (oldterm) 03/25/05 Given tetanus-diphtheria toxoids (Td) 03/25/03 Given 1Result Comment: [id number] Comment: [03/06/2018] [id number] Comment: [02/02/2015] all screening questions [id number] Note: vis Admin Note: vis 6-3-981Knhgy Note: VIS:Result Comment: [02/28/2017] [facility]: [id number] Note: VIS [id number] Note: VIS [id number] Note: VIS given11 Admin Note: VIS 1211 [...] 28 Gm, 1 Refills, Acute, [facility]-85077, 15, APPLY A THIN LAYER TWICE A [...] 08/20/19 15:32:00 EDT, Route to Pharmacy Electronically, [facility]-26249, 166,... Start Date: 08/20/19 Status: OrderedCelexa Tablet 60 mg, Daily at bedtime, Refills 0, Tot. Refills 0, Maintenance, 06/06/06 14:39:21 Start Date: 06/06/06 Status: OrderedClaritin 10 mg oral tablet 10 mg, 1, tablet, By Mouth, Daily at bedtime, # 30 tablet, Refills 11, Tot. Refills 11, Maintenance,12/18/18 10:07:43 EDT, [id number] [place] [address] Start Date: 12/18/18 Status: OrderedDesenex Foot 2% [...] each, 0 Refills, Maintenance, 09/05/18 8:52:13 EDT, [place], 1 sprays Nares, Both 2 times a [...] 8:52:32 EDT, Route to Pharmacy Electronically, [facility]- [id number], [facility]... Start Date: 09/05/18 Status: Orderedlisinopril 10 mg oral tablet 10 mg, 1, tablet, By Mouth, Daily, # 30 tablet, Refills 11, Tot. Refills 11, Maintenance, 12/18/18 10:07:42 EDT, Route to Pharmacy Electronically, [facility]- [id number], [facility]211 Start Date: 12/18/18 Status: OrderedLubriderm Daily Moisturizer [...] Replace Required Details, Route to Pharmacy Electronically, [facility][id number], [facility]217 Start Date: 09/05/18 Status: OrderedVitamin D3 1000 [...]
--- OUTSIDE RECORDS SUMMARY | 2022-01-10 20:21 | XMS_ITS | Continuity of Care Document ---
:[address] [facility] Address [address] [place] [address]- Care Team Providers Name Role Phone Jose Ulloa MD Primary Care Physician Encounter [facility] Date(s): 08/16/20 - 09/15/20 [facility] [address], [place] [address] Allergies, Adverse Reactions, Alerts Substance Reaction Severity [...] (old term)10 06/07/11 Given hepatitis B adult [id number] 05/09/11 Given Pneumococcal Vaccine (oldterm) 03/25/05 Given tetanus-diphtheria toxoids (Td) 03/25/03 Given 1Result Comment: [id number] Comment: [03/06/2018] [id number] Comment: [02/02/2015] all screening questions [id number] Note: vis Admin Note: vis 7-6-223Pwlkg Note: VIS:Result Comment: [02/28/2017] [facility]: [id number] Note: VIS [id number] Note: VIS [id number] Note: VIS given11 Admin Note: VIS [address] dose Medications acetaminophen 325 mg oral tablet 650 mg, 2, tablet, By Mouth, Every 8 hours, PRN, not to exceed 4000 mg/day Call after 72 hours if not resolved, # 18 tablet, Refills 5, Tot. Refills 5, Maintenance, for fever, 06/11/19 9:27:00 EDT, Route to Pharmacy Electronically, [facility]-... Start Date: 06/11/19 Stop Date: 06/29/19 Status: OrderedAmmonium Lactate 12% Topical Topically, 2 times a day, 0 Refills, Maintenance Start Date: 02/28/17 Status: Orderedammonium lactate 12% topical cream 1 application, Topically, 2 times a day, # 385 Gm, 5 Refills, Maintenance, 08/30/20 11:33:00 EDT, Cream, [facility]/pharmacy #1972, Partial fill upon patient request [...] Stop 05/24/21 12:00:00 EST, 06/15/20 9:09:00 EDT, [facility] [place]-[address], 15, APPLY A THIN LAYER TWICE... Start [...] tablet, 12 Refills, Maintenance, 07/14/20 13:11:00 EDT, [facility] [place]-[address], 166, cm, 07/14/20 13:07:00 EDT, Height Start [...] 0 Refills, Soft Stop, 08/19/20 11:28:00 EDT, [facility]/pharmacy #1972, 166, cm, 08/11/20 7:50:00 EDT, Height Start Date: 08/19/20 Status: OrderedFiber Lax 625 mg oral tablet 625 mg, By Mouth, Daily, take one tablet every day by mouth at 4 pm, # 30 each, 5 Refills, Maintenance, 07/14/20 13:11:00 EDT, [facility] [place]- [address], 166, cm, 07/14/20 13:07:00 EDT, Height Start Date: 07/14/20 Status: Orderedfluticasone 50 mcg/inh nasal spray See Instructions, INSTILL 1 SPRAY INTO EACH NOSTRIL TWICE A DAY, # 16 Gm, 3 Refills, Maintenance, [facility]367, 30, INSTILL 1 SPRAY INTO EACH NOSTRIL [...] 07/14/20 13:11:00 EDT, Route to Pharmacy Electronically, [facility] [place]-0... Start Date: 07/14/20 Status: OrderedImodium A-D 2 [...] 07/14/20 13:11:00 EDT, Route to Pharmacy Electronically, [facility] [place]-[address], 166, cm, 07/14/20 13:07:00 EDT, Height Start [...] tablet, 12 Refills, Maintenance, 07/14/20 13:11:00 EDT, [facility] [place]-[address], 166, cm, 07/14/20 13:07:00 EDT, Height Start Date: 07/14/20 Status: Orderedpimecrolimus topical cream 1 application, Topically, 2 times a day, apply and rub in well, # 30 Gm, 1 Refills, Maintenance, 08/30/20 11:34:00 EDT, Cream, [facility]/pharmacy #1972, Partial fill upon patient request if the prescription is for a schedule II opioid drug., 1 application T... Start Date: 08/30/20 Stop Date: 10/29/20 Status: OrderedrisperiDONE 0.5 mg oral tablet 1, tablet, By Mouth, 2 times a day, AT 4PM AND 7PM., # 56 tablet, Refills 12, Tot. Refills 0, Maintenance, 09/14/20 16:44:00 EDT, Route to Pharmacy Electronically, [facility], 166, cm, 08/11/20 7:50:00 EDT, Height Start Date: 09/14/20 Status: OrderedVitamin D3 1000 intl units oral capsule See Instructions, 1 capsule By Mouth Daily in pm, # 30 tablet, 5 Refills, Maintenance, 07/14/20 13:11:00 EDT, Capsule, [facility] [place]-[address], 166, cm, 07/14/20 13:07:00 EDT, Height Start Date: 07/14/20 Status: OrderedVitamin D3 1000 intl units oral tablet 1 tablet = 1,000 International_Units, By Mouth, Daily, with food, # 30 tablet, 11 Refills, Maintenance, 07/14/20 13:14:00 EDT, Tablet, [facility]-[address]28, Partial fill upon patient request if the [...]
--- OUTSIDE RECORDS SUMMARY | 2022-01-10 20:21 | XMS_ITS | Continuity of Care Document ---
:1975 Author Organization [facility] Address [address] [place] [address]- Care Team Providers Name Role Phone Jose Ulloa MD Primary Care Physician Encounter [facility] Date(s): 08/11/20 - 09/10/20 [facility] [address] [place] [address]- Attending Physician: Bruce Hansen Admitting Physician: AdmtrBruce Referring Physician: AdmtrBruce Allergies, Adverse Reactions, Alerts Substance Reaction Severity [...] (old term)10 06/07/11 Given hepatitis B adult [id number] 05/09/11 Given Pneumococcal Vaccine (oldterm) 03/25/05 Given tetanus-diphtheria toxoids (Td) 03/25/03 Given 1Result Comment: [id number] Comment: [03/06/2018] [id number] Comment: [02/02/2015] all screening questions [id number] Note: vis 7/2/135 Admin Note: vis 0-7-062Zcgkn Note: VIS:Result Comment: [02/28/2017] [facility]: [id number] Note: VIS POKSV1Nvzxb Note: VIS NODCH09Relwz Note: VIS given11 Admin Note: VIS [address] dose Medications acetaminophen 325 mg oral tablet 650 mg, 2, tablet, By Mouth, Every 8 hours, PRN, not to exceed 4000 mg/day Call after 72 hours if not resolved, # 18 tablet, Refills 5, Tot. Refills 5, Maintenance, for fever, 06/11/19 9:27:00 EDT, Route to Pharmacy Electronically, [facility]-... Start Date: 06/11/19 Stop Date: 06/29/19 Status: OrderedAmmonium Lactate 12% Topical Topically, 2 times a day, 0 Refills, Maintenance Start Date: 02/28/17 Status: Orderedammonium lactate 12% topical cream 1 application, Topically, 2 times a day, # 385 Gm, 5 Refills, Maintenance, 08/30/20 11:33:00 EDT, Cream, [facility]/pharmacy #1972, Partial fill upon patient request [...] Stop 05/24/21 12:00:00 EST, 06/15/20 9:09:00 EDT, [facility]-[address], 15, APPLY A THIN LAYER TWICE... Start [...] Refills, Maintenance, 07/14/20 13:11:00 EDT, [facility]376, 166, cm, 07/14/20 13:07:00 EDT, Height Start [...] 0 Refills, Soft Stop, 08/19/20 11:28:00 EDT, [facility]/pharmacy #1972, 166, cm, 08/11/20 7:50:00 EDT, Height Start Date: 08/19/20 Status: OrderedFiber Lax 625 mg oral tablet 625 mg, By Mouth, Daily, take one tablet every day by mouth at 4 pm, # 30 each, 5 Refills, Maintenance, 07/14/20 13:11:00 EDT, [facility] [address], 166, cm, 07/14/20 13:07:00 EDT, Height Start Date: 07/14/20 Status: Orderedfluticasone 50 mcg/inh nasal spray See Instructions, INSTILL 1 SPRAY INTO EACH NOSTRIL TWICE A DAY, # 16 Gm, 3 Refills, Maintenance, [place] [id number], 30, INSTILL 1 SPRAY INTO EACH NOSTRIL [...] 07/14/20 13:11:00 EDT, Route to Pharmacy Electronically, [facility]-0... Start Date: 07/14/20 Status: OrderedImodium [...] 07/14/20 13:11:00 EDT, Route to Pharmacy Electronically, [facility]-[address]647, 166, cm, 07/14/20 13:07:00 EDT, Height Start [...] tablet, 12 Refills, Maintenance, 07/14/20 13:11:00 EDT, [facility]-[address], 166, cm, 07/14/20 13:07:00 EDT, Height Start Date: 07/14/20 Status: Orderedpimecrolimus topical cream 1 application, Topically, 2 times a day, apply and rub in well, # 30 Gm, 1 Refills, Maintenance, 08/30/20 11:34:00 EDT, Cream, [facility]/pharmacy #1972, Partial fill upon patient request if the prescription is for a schedule II opioid drug., 1 application T... Start Date: 08/30/20 Stop Date: 10/29/20 Status: OrderedRisperDAL 0.5 mg oral tablet See Instructions, PRN, tab BID, # 60 each, Refills 0, Tot. Refills 0, Maintenance, take at 4pm and 7pm, 09/07/20 13:58:00 EDT, Instructions Replace Required Details, Route to Pharmacy Electronically, [facility]/pharmacy #1972, 166, cm, 08/11/20 7:50:00 EDT,... Start Date: 09/07/20 Status: OrderedVitamin D3 1000 intl units oral capsule See Instructions, 1 capsule By Mouth Daily in pm, # 30 tablet, 5 Refills, Maintenance, 07/14/20 13:11:00 EDT, Capsule, [facility]-[address], 166, cm, 07/14/20 13:07:00 EDT, Height Start Date: 07/14/20 Status: OrderedVitamin D3 1000 intl units oral tablet 1 tablet = 1,000 International_Units, By Mouth, Daily, with food, # 30 tablet, 11 Refills, Maintenance, 07/14/20 13:14:00 EDT, Tablet, [facility], Partial fill upon patient request if the [...]
--- OUTSIDE RECORDS SUMMARY | 2022-01-10 20:21 | XMS_ITS | Continuity of Care Document ---
:1975 Author Organization [facility] Address [address] [place] [address]- Care Team Providers Name Role Phone Jose Ulloa MD Primary Care Physician Encounter [facility] Date(s): 08/12/20 - 09/11/20 [facility] [address] [place] [id number] Allergies, [...] (old term)10 06/07/11 Given hepatitis B adult [id number] 05/09/11 Given Pneumococcal Vaccine (oldterm) 03/25/05 Given tetanus-diphtheria toxoids (Td) 03/25/03 Given 1Result Comment: [id number] Comment: [03/06/2018] [id number] Comment: [02/02/2015] all screening questions [id number] Note: vis Admin Note: vis 8-4-193Jbydh Note: VIS:Result Comment: [02/28/2017] ND: [id number] Note: VIS [id number] Note: VIS EMHUX18Ahcog Note: VIS given11 Admin Note: VIS [address] dose Medications acetaminophen 325 mg oral tablet 650 mg, 2, tablet, By Mouth, Every 8 hours, PRN, not to exceed 4000 mg/day Call after 72 hours if not resolved, # 18 tablet, Refills 5, Tot. Refills 5, Maintenance, for fever, 06/11/19 9:27:00 EDT, Route to Pharmacy Electronically, [facility]-... Start Date: 06/11/19 Stop Date: 06/29/19 Status: OrderedAmmonium Lactate 12% Topical Topically, 2 times a day, 0 Refills, Maintenance Start Date: 02/28/17 Status: Orderedammonium lactate 12% topical cream 1 application, Topically, 2 times a day, # 385 Gm, 5 Refills, Maintenance, 08/30/20 11:33:00 EDT, Cream, [facility]/pharmacy #1972, Partial fill upon patient request [...] Stop 05/24/21 12:00:00 EST, 06/15/20 9:09:00 EDT, [facility]-[address], 15, APPLY A THIN LAYER TWICE... Start [...] tablet, 12 Refills, Maintenance, 07/14/20 13:11:00 EDT, [facility], 166, cm, 07/14/20 13:07:00 EDT, Height Start [...] 0 Refills, Soft Stop, 08/19/20 11:28:00 EDT, [facility]/pharmacy #1972, 166, cm, 08/11/20 7:50:00 EDT, Height Start Date: 08/19/20 Status: OrderedFiber Lax 625 mg oral tablet 625 mg, By Mouth, Daily, take one tablet every day by mouth at 4 pm, # 30 each, 5 Refills, Maintenance, 07/14/20 13:11:00 EDT, [facility] [address], 166, cm, 07/14/20 13:07:00 EDT, Height Start Date: 07/14/20 Status: Orderedfluticasone 50 mcg/inh nasal spray See Instructions, INSTILL 1 SPRAY INTO EACH NOSTRIL TWICE A DAY, # 16 Gm, 3 Refills, Maintenance, [place] [id number], 30, INSTILL 1 SPRAY INTO EACH NOSTRIL [...] 07/14/20 13:11:00 EDT, Route to Pharmacy Electronically, [facility]-0... Start Date: 07/14/20 Status: OrderedImodium [...] 07/14/20 13:11:00 EDT, Route to Pharmacy Electronically, [facility]-[address]45, 166, cm, 07/14/20 13:07:00 EDT, Height Start [...] tablet, 12 Refills, Maintenance, 07/14/20 13:11:00 EDT, [facility]-[address], 166, cm, 07/14/20 13:07:00 EDT, Height Start Date: 07/14/20 Status: Orderedpimecrolimus topical cream 1 application, Topically, 2 times a day, apply and rub in well, # 30 Gm, 1 Refills, Maintenance, 08/30/20 11:34:00 EDT, Cream, [facility]/pharmacy #1972, Partial fill upon patient request if the prescription is for a schedule II opioid drug., 1 application T... Start Date: 08/30/20 Stop Date: 10/29/20 Status: OrderedRisperDAL 0.5 mg oral tablet See Instructions, PRN, tab BID, # 60 each, Refills 0, Tot. Refills 0, Maintenance, take at 4pm and 7pm, 09/07/20 13:58:00 EDT, Instructions Replace Required Details, Route to Pharmacy Electronically, [facility]/pharmacy #1972, 166, cm, 08/11/20 7:50:00 EDT,... Start Date: 09/07/20 Status: OrderedVitamin D3 1000 intl units oral capsule See Instructions, 1 capsule By Mouth Daily in pm, # 30 tablet, 5 Refills, Maintenance, 07/14/20 13:11:00 EDT, Capsule, [facility], 166, cm, 07/14/20 13:07:00 EDT, Height Start Date: 07/14/20 Status: OrderedVitamin D3 1000 intl units oral tablet 1 tablet = 1,000 International_Units, By Mouth, Daily, with food, # 30 tablet, 11 Refills, Maintenance, 07/14/20 13:14:00 EDT, Tablet, [facility]-[address]18, Partial fill upon patient request if the [...]
--- OUTSIDE RECORDS SUMMARY | 2022-01-10 20:21 | XMS_ITS | Continuity of Care Document ---
:1975 Author Organization [facility] Address [address] [place] [address]- Care Team Providers Name Role Phone Jose Ulloa MD Primary Care Physician Encounter [facility] Date(s): 12/22/19 - 01/21/20 [facility] [address] [place] [address]- Allergies, Adverse Reactions, Alerts Substance Reaction Severity [...] tetanus-diphtheria toxoids (Td) 03/25/03 Given 1Result Comment: [id number] Comment: [03/06/2018] [id number] Comment: [02/02/2015] all screening questions [id number] Note: vis Admin Note: vis 3-5-949Ecwre Note: VIS:Result Comment: [02/28/2017] [facility]: [id number] Note: VIS WIYIQ9Jxfmz Note: VIS UUKVC42Goxes Note: VIS given11 Admin Note: VIS [address] dose Medications acetaminophen 325 mg oral tablet 650 mg, 2, tablet, By Mouth, Every 8 hours, PRN, not to exceed 4000 mg/day Call after 72 hours if not resolved, # 18 tablet, Refills 5, Tot. Refills 5, Maintenance, for fever, 06/11/19 9:27:00 EDT, Route to Pharmacy Electronically, [facility]-... Start Date: 06/11/19 Stop Date: 06/29/19 Status: OrderedAmmonium Lactate 12% Topical Topically, 2 times a day, 0 Refills, Maintenance Start Date: 02/28/17 Status: Orderedbacitracin topical 500 u/gm ointment See Instructions, APPLY A THIN LAYER TWICE A DAY NEEDED FOR MINOR CUTS AND SCRAPES TO PREVENT INFECTI, # 28 Gm, 1 Refills, Acute, [facility]-[address], 15, APPLY A THIN LAYER TWICE A [...] 01/14/20 7:35:00 EDT, Route to Pharmacy Electronically, [facility]-47063, 166, c... Start Date: 01/14/20 Status: OrderedCelexa Tablet 60 mg, Daily at bedtime, Refills 0, Tot. Refills 0, Maintenance, 06/06/06 14:39:21 Start Date: 06/06/06 Status: OrderedClaritin 10 mg oral tablet 10 mg, 1, tablet, By Mouth, Daily at bedtime, # 30 tablet, Refills 5, Tot. Refills 5, Maintenance, 12/30/19 14:05:00 EDT, Route to Pharmacy Electronically, [facility], 166, cm, 12/29/19 11:45:00 EDT, Height Start [...] each, 5 Refills, Maintenance, 01/18/20 12:10:00 EDT, [facility] [address], 166, cm, 12/29/19 11:45:00 EDT, Height Start Date: 01/18/20 Status: OrderedFlonase 50 mcg/inh nasal spray 1 sprays, Nares, Both, 2 times a day, in each nostril, # 2 each, 0 Refills, Maintenance, 09/05/18 8:52:13 EDT, [place], 1 sprays Nares, Both 2 times a [...] 8:52:32 EDT, Route to Pharmacy Electronically, [facility]- [id number], [facility]... Start Date: 09/05/18 Status: Orderedlisinopril 10 mg oral tablet 10 mg, 1, tablet, By Mouth, Daily, # 30 tablet, Refills 11, Tot. Refills 11, Maintenance, 12/18/18 10:07:42 EDT, Route to Pharmacy Electronically, [facility]- [id number], [facility] Start Date: 12/18/18 Status: OrderedLubriderm Daily Moisturizer [...] Replace Required Details, Route to Pharmacy Electronically, [facility]-[id number], [facility] Start Date: 09/05/18 Status: OrderedVitamin D3 1000 intl units oral capsule See Instructions, 1 capsule By Mouth Daily in pm, # 30 tablet, 5 Refills, Maintenance, 01/19/20 15:02:00 EDT, Capsule, [facility]-98[address], 166, cm, 12/29/19 11:45:00 EDT, Height Start Date: 01/19/20 Status: Ordered Problem List Condition Effective Dates Status Health Status Informant Anemia(Confirmed) Active Asthma(Confirmed) Active Atopic eczema(Confirmed) Active Autistic disorder(Confirmed) Active Eruption(Confirmed) Active External hemorrhoids(Confirmed) Active High triglycerides(Confirmed) 04/16/12 Active HTN - Hypertension(Confirmed) Active Mental retardation(Confirmed) Active Tinea corporis(Confirmed) 05/19/12 Active Social History Social History Type Response Smoking Status Never smoker entered on: 08/01/16 Sex
--- OUTSIDE RECORDS SUMMARY | 2022-01-10 20:21 | XMS_ITS | Continuity of Care Document ---
:1975 Author Organization [facility] Address [address] [place] [address]- Care Team Providers Name Role Phone Jose Ulloa MD Primary Care Physician Encounter [facility] Date(s): 07/14/20 - 07/21/20 [facility] [address] [place], [place] [address] Attending Physician: Jose Ulloa MD Allergies, Adverse [...] tetanus-diphtheria toxoids (Td) 03/25/03 Given 1Result Comment: [id number] Comment: [03/06/2018] [id number] Comment: [02/02/2015] all screening questions [id number] Note: vis Admin Note: vis 8-7-286Vnxmg Note: VIS:Result Comment: [02/28/2017] ND: [id number] Note: VIS YZGGD1Caacx Note: VIS YKLUT80Vagxe Note: VIS given11 Admin Note: VIS [address] dose Medications acetaminophen 325 mg oral tablet 650 mg, 2, tablet, By Mouth, Every 8 hours, PRN, not to exceed 4000 mg/day Call after 72 hours if not resolved, # 18 tablet, Refills 5, Tot. Refills 5, Maintenance, for fever, 06/11/19 9:27:00 EDT, Route to Pharmacy Electronically, [facility] [place]-... Start Date: 06/11/19 Stop Date: 06/29/19 Status: OrderedAmmonium Lactate 12% Topical Topically, 2 times a day, 0 Refills, Maintenance Start Date: 02/28/17 Status: Orderedbacitracin topical 500 u/gm ointment See Instructions, APPLY A THIN LAYER TWICE A DAY NEEDED FOR MINOR CUTS AND SCRAPES TO PREVENT INFECTI, # 28 Gm, 1 Refills, Physician Stop 05/24/21 12:00:00 EST, 06/15/20 9:09:00 EDT, [facility]-69695, 15, APPLY A THIN LAYER TWICE... Start [...] tablet, 12 Refills, Maintenance, 07/14/20 13:11:00 EDT, [facility]-[address], 166, cm, 07/14/20 13:07:00 EDT, Height Start [...] each, 5 Refills, Maintenance, 07/14/20 13:11:00 EDT, [facility]- [address], 166, cm, 07/14/20 13:07:00 EDT, Height Start Date: 07/14/20 Status: OrderedFlonase 50 mcg/inh nasal spray 1 sprays, Nares, Both, 2 times a day, in each nostril, # 2 each, 0 Refills, Maintenance, 09/05/18 8:52:13 EDT, [place], 1 sprays Nares, Both 2 times a [...] EDT, Route to Pharmacy Electronically, [facility]-0... Start Date: 07/14/20 Status: OrderedImodium A-D 2 mg oral tablet 2 mg, 1, tablet, By Mouth, 3 times a day, PRN, # 30 tablet, Refills 3, Tot. Refills 3, Maintenance, [place], 05/10/17 14:08:46 EST, [employer] Start Date: 2/16/18 Status: Orderedlisinopril 10 mg oral tablet 10 mg, 1, tablet, By Mouth, Daily, # 30 tablet, Refills 5, Tot. Refills 5, Maintenance, 07/14/20 13:11:00 EDT, Route to Pharmacy Electronically, [facility]46, 166, cm, 07/14/20 13:07:00 EDT, Height Start [...] tablet, 12 Refills, Maintenance, 07/14/20 13:11:00 EDT, [facility], 166, cm, 07/14/20 13:07:00 EDT, Height Start Date: 07/14/20 Status: OrderedRisperDAL 0.5 mg oral tablet See Instructions, PRN, tab BID, # 60 each, Refills 0, Tot. Refills 0, Maintenance, take at 4pm and 7pm, 07/14/20 13:11:00 EDT, Instructions Replace Required Details, Route to Pharmacy Electronically, [facility]858, 166, cm, ... Start Date: 07/14/20 Status: OrderedVitamin D3 1000 intl units oral capsule See Instructions, 1 capsule By Mouth Daily in pm, # 30 tablet, 5 Refills, Maintenance, 07/14/20 13:11:00 EDT, Capsule, [facility]379, 166, cm, 07/14/20 13:07:00 EDT, Height Start Date: 07/14/20 Status: OrderedVitamin D3 1000 intl units oral tablet 1 tablet = 1,000 International_Units, By Mouth, Daily, with food, # 30 tablet, 11 Refills, Maintenance, 07/14/20 13:14:00 EDT, Tablet, [place] [id number], Partial fill upon patient request if the [...] 1 2 Height 166 cm 166 cm (07/14/20 1:07 PM) (07/14/20 12:44 PM) Blood Pressure [90-138/55-84 mm Hg] 121/81 mm Hg (07/14/20 1:07 PM) Social History Social History Type Response Smoking Status Never smoker entered on: 08/01/16 Sex
--- OUTSIDE RECORDS SUMMARY | 2022-01-10 20:21 | XMS_ITS | Continuity of Care Document ---
:1975 Author Organization [facility] Address [address] [place] [address]- Care Team Providers Name Role Phone Jose Ulloa MD Primary Care Physician Encounter [facility] Date(s): 11/02/20 - 12/02/20 [facility] [address] [place] [address]- Attending Physician: Bruce Hansen Admitting Physician: Bruce Hansen Referring Physician: Admtr, Stanton8 Allergies, Adverse Reactions, Alerts Substance Reaction Severity [...] (old term)10 06/07/11 Given hepatitis B adult [id number] 05/09/11 Given Pneumococcal Vaccine (oldterm) 03/25/05 Given tetanus-diphtheria toxoids (Td) 03/25/03 Given 1Result Comment: [id number] Comment: [03/06/2018] [id number] Comment: [02/02/2015] all screening questions [id number] Note: vis Admin Note: vis 3-1-470Ltnnr Note: VIS:Result Comment: [02/28/2017] [facility]: [id number] Note: VIS [id number] Note: VIS [id number] Note: VIS given11 Admin Note: VIS [address] dose Medications acetaminophen 325 mg oral tablet 650 mg, 2, tablet, By Mouth, Every 8 hours, PRN, not to exceed 4000 mg/day Call after 72 hours if not resolved, # 18 tablet, Refills 5, Tot. Refills 5, Maintenance, for fever, 06/11/19 9:27:00 EDT, Route to Pharmacy Electronically, [facility]-... Start Date: 06/11/19 Stop Date: 06/29/19 Status: OrderedAmmonium Lactate 12% Topical Topically, 2 times a day, 0 Refills, Maintenance Start Date: 02/28/17 Status: Orderedammonium lactate 12% topical cream 1 application, Topically, 2 times a day, # 385 Gm, 5 Refills, Maintenance, 08/30/20 11:33:00 EDT, Cream, [facility]/pharmacy #1972, Partial fill upon patient [...] Stop 05/24/21 12:00:00 EST, 06/15/20 9:09:00 EDT, [facility]-51426, 15, APPLY A THIN LAYER TWICE... Start [...] tablet, 12 Refills, Maintenance, 07/14/20 13:11:00 EDT, [facility]94920, 166, cm, 07/14/20 13:07:00 EDT, Height Start [...] 0 Refills, Soft Stop, 09/23/20 9:31:00 EDT, [facility]/pharmacy #2566, 166, cm, 08/11/20 7:50:00 EDT, Height Start Date: 09/23/20 Status: OrderedFiber Lax 625 mg oral tablet 625 mg, By Mouth, Daily, take one tablet every day by mouth at 4 pm, # 30 each, 5 Refills, Maintenance, 07/14/20 13:11:00 EDT, [facility]- [address], 166, cm, 07/14/20 13:07:00 EDT, Height Start Date: 07/14/20 Status: Orderedfluticasone 50 mcg/inh nasal spray See Instructions, INSTILL 1 SPRAY INTO EACH NOSTRIL TWICE A DAY, # 16 Gm, 3 Refills, Maintenance, [place] [address], 30, INSTILL 1 SPRAY INTO EACH NOSTRIL [...] 07/14/20 13:11:00 EDT, Route to Pharmacy Electronically, [facility]-0... Start Date: 07/14/20 Status: [...] 07/14/20 13:11:00 EDT, Route to Pharmacy Electronically, [facility]-56319, 166, cm, 07/14/20 13:07:00 EDT, Height Start [...] tablet, 12 Refills, Maintenance, 07/14/20 13:11:00 EDT, [facility]-93392, 166, cm, 07/14/20 13:07:00 EDT, Height Start [...] 09/14/20 16:44:00 EDT, Route to Pharmacy Electronically, [facility], 166, cm, 08/11/20 7:50:00 EDT, Height Start Date: 09/14/20 Status: OrderedVitamin D3 1000 intl units oral capsule See Instructions, 1 capsule By Mouth Daily in pm, # 30 tablet, 5 Refills, Maintenance, 07/14/20 13:11:00 EDT, Capsule, [facility]-56062, 166, cm, 07/14/20 13:07:00 EDT, Height Start Date: 07/14/20 Status: OrderedVitamin D3 1000 intl units oral tablet 1 tablet = 1,000 International_Units, By Mouth, Daily, with food, # 30 tablet, 11 Refills, Maintenance, 07/14/20 13:14:00 EDT, [facility], Partial fill upon patient request if the [...]
--- OUTSIDE RECORDS SUMMARY | 2022-01-10 20:21 | XMS_ITS | Continuity of Care Document ---
:1975 Author Organization [facility] [facility] Address [address] [place] [address]- Care Team Providers Name Role Phone Jose Ulloa MD Primary Care Physician Encounter [facility] NBR [id number] Date(s): 12/30/19 - 01/29/20 [facility] [facility] [address] [place] [address]- Allergies, Adverse Reactions, Alerts Substance Reaction Severity [...] (old term)10 06/07/11 Given hepatitis B adult [id number] 05/09/11 Given Pneumococcal Vaccine (oldterm) 03/25/05 Given tetanus-diphtheria toxoids (Td) 03/25/03 Given 1Result Comment: [id number] Comment: [03/06/2018] [id number] Comment: [02/02/2015] all screening questions [id number] Note: vis Admin Note: vis [id number] Note: VIS:Result Comment: [02/28/2017] [facility]: [id number] Note: VIS [id number] Note: VIS LFIHA76Jvniy Note: VIS given11 Admin Note: VIS [address] dose Medications acetaminophen 325 mg oral tablet 650 mg, 2, tablet, By Mouth, Every 8 hours, PRN, not to exceed 4000 mg/day Call after 72 hours if not resolved, # 18 tablet, Refills 5, Tot. Refills 5, Maintenance, for fever, 06/11/19 9:27:00 EDT, Route to Pharmacy Electronically, [facility]-... Start Date: 06/11/19 Stop Date: 06/29/19 Status: OrderedAmmonium Lactate 12% Topical Topically, 2 times a day, 0 Refills, Maintenance Start Date: 02/28/17 Status: Orderedbacitracin topical 500 u/gm ointment See Instructions, APPLY A THIN LAYER TWICE A DAY NEEDED FOR MINOR CUTS AND SCRAPES TO PREVENT INFECTI, # 28 Gm, 1 Refills, Acute, [facility]-81547, 15, APPLY A THIN LAYER TWICE A [...] 01/14/20 7:35:00 EDT, Route to Pharmacy Electronically, [facility]-49539, 166, c... Start Date: 01/14/20 Status: OrderedCelexa Tablet 60 mg, Daily at bedtime, Refills 0, Tot. Refills 0, Maintenance, 06/06/06 14:39:21 Start Date: 06/06/06 Status: OrderedClaritin 10 mg oral tablet 10 mg, 1, tablet, By Mouth, Daily at bedtime, # 30 tablet, Refills 5, Tot. Refills 5, Maintenance, 12/30/19 14:05:00 EDT, Route to Pharmacy Electronically, [facility]06822, 166, cm, 12/29/19 11:45:00 EDT, Height Start [...] Maintenance, 01/18/20 12:10:00 EDT, [facility] [address], 166, cm, 12/29/19 11:45:00 EDT, Height Start Date: 01/18/20 Status: OrderedFlonase 50 mcg/inh nasal spray 1 sprays, Nares, Both, 2 times a day, in each nostril, # 2 each, 0 Refills, Maintenance, 09/05/18 8:52:13 EDT, [place], 1 sprays Nares, Both 2 times a [...] 09/05/18 8:52:32 EDT, Route to Pharmacy Electronically, [facility]- [id number], [facility]... Start Date: 09/05/18 Status: Orderedlisinopril 10 mg oral tablet 10 mg, 1, tablet, By Mouth, Daily, # 30 tablet, Refills 5, Tot. Refills 5, Maintenance, 01/26/20 13:34:00 EST, Route to Pharmacy Electronically, [facility]08655, 166, cm, 12/29/19 11:45:00 EDT, Height Start [...] Replace Required Details, Route to Pharmacy Electronically, [facility]-[id number], [facility]23738 Start Date: 09/05/18 Status: OrderedVitamin D3 1000 intl units oral capsule See Instructions, 1 capsule By Mouth Daily in pm, # 30 tablet, 5 Refills, Maintenance, 01/27/20 9:56:00 EST, Capsule, [facility]-50253, 166, cm, 12/29/19 11:45:00 EDT, Height Start [...]
--- OUTSIDE RECORDS SUMMARY | 2022-01-10 20:21 | XMS_ITS | Continuity of Care Document ---
:1975 Author Organization [facility] Address [address] [place] [address]- Care Team Providers Name Role Phone Jose Ulloa MD Primary Care Physician Encounter [facility] NBR [id number] Date(s): 12/29/19 - 01/05/20 [facility] [address] [place] [address]- Attending Physician: Jose Ulloa MD Allergies, Adverse Reactions, Alerts Substance Reaction Severity Status shellfish Active Fish Active Nuts not confirmed with allergy tests Active Lobster Active Immunizations Given and Recorded Vaccine Date [...] tetanus-diphtheria toxoids (Td) 03/25/03 Given 1Result Comment: [id number] Comment: [03/06/2018] [id number] Comment: [02/02/2015] all screening questions [id number] Note: vis Admin Note: vis 7-9-534Gmszu Note: VIS:Result Comment: [02/28/2017] [facility]: [id number] Note: VIS [id number] Note: VIS [id number] Note: VIS given11 Admin Note: VIS [address] dose Medications acetaminophen 325 mg oral tablet 650 mg, 2, tablet, By Mouth, Every 8 hours, PRN, not to exceed 4000 mg/day Call after 72 hours if not resolved, # 18 tablet, Refills 5, Tot. Refills 5, Maintenance, for fever, 06/11/19 9:27:00 EDT, Route to Pharmacy Electronically, [facility]-... Start Date: 06/11/19 Stop Date: 06/29/19 Status: OrderedAmmonium Lactate 12% Topical Topically, 2 times a day, 0 Refills, Maintenance Start Date: 02/28/17 Status: Orderedbacitracin topical 500 u/gm ointment See Instructions, APPLY A THIN LAYER TWICE A DAY NEEDED FOR MINOR CUTS AND SCRAPES TO PREVENT INFECTI, # 28 Gm, 1 Refills, Acute, [facility]-93841, 15, APPLY A THIN LAYER TWICE A [...] tablet, Refills 5, Tot. Refills 5, Maintenance, 12/22/19 20:13:00 EDT, Route to Pharmacy Electronically, [place] [id number], 166,... Start Date: 12/22/19 Status: OrderedCelexa Tablet 60 mg, Daily at bedtime, Refills 0, Tot. Refills 0, Maintenance, 06/06/06 14:39:21 Start Date: 06/06/06 Status: OrderedClaritin 10 mg oral tablet 10 mg, 1, tablet, By Mouth, Daily at bedtime, # 30 tablet, Refills 5, Tot. Refills 5, Maintenance, 12/30/19 14:05:00 EDT, Route to Pharmacy Electronically, [facility]48006, 166, cm, 12/29/19 11:45:00 EDT, Height Start [...] each, 0 Refills, Maintenance, 09/05/18 8:52:13 EDT, [place], 1 sprays Nares, Both 2 times a [...] 8:52:32 EDT, Route to Pharmacy Electronically, N[facility]_ID- [id number], [facility]... Start Date: 09/05/18 Status: Orderedlisinopril 10 mg oral tablet 10 mg, 1, tablet, By Mouth, Daily, # 30 tablet, Refills 11, Tot. Refills 11, Maintenance, 12/18/18 10:07:42 EDT, Route to Pharmacy Electronically, [facility]CP[facility]_ID- [id number], [place] [address] Start Date: 12/18/18 Status: OrderedLubriderm Daily Moisturizer [...] Replace Required Details, Route to Pharmacy Electronically, NCPDP_ID-[id number], [place] [address] Start Date: 09/05/18 Status: OrderedVitamin D3 1000 [...] Most recent to oldest [Reference Range]: 1 Height 166 cm (12/29/19 11:45 AM) Weight 80.6 kg (12/29/19 11:45 AM) Oxygen Saturation [94-100 %] 98 % (12/29/19 11:45 AM) Pulse Rate [55-90 bpm] 74 bpm (12/29/19 11:45 AM) Body Mass Index [18.5-24.99] 29.25 *H* (12/29/19 11:45 AM) Blood Pressure [90-138/55-84 mm Hg] 120/78 mm Hg (12/29/19 11:45 AM) Respiratory Rate [16-30 br/min] 16 br/min (12/29/19 11:45 AM) Temperature [96.8-100.4 DegF] 98.6 DegF (12/29/19 11:45 AM) Mode of Delivery (Oxygen) Room air (12/29/19 11:45 AM) Blood pressure sites Arm, left (12/29/19 11:45 AM) Temperature Route Temporal (12/29/19 11:45 AM) Social History Social History Type Response Smoking Status Never smoker entered on: 08/01/16 Sex
--- OUTSIDE RECORDS SUMMARY | 2022-01-10 20:21 | XMS_ITS | Continuity of Care Document ---
:1975 Author Organization [facility] Address [address] [place] [address]- Care Team Providers Name Role Phone Jose Ulloa MD Primary Care Physician Encounter [facility] Date(s): 04/05/20 - 05/05/20 [facility] [address] [place], [place] [address] Allergies, Adverse Reactions, Alerts Substance [...] tetanus-diphtheria toxoids (Td) 03/25/03 Given 1Result Comment: [id number] Comment: [03/06/2018] [id number] Comment: [02/02/2015] all screening questions [id number] Note: vis Admin Note: vis 5-7-702Uwrtz Note: VIS:Result Comment: [02/28/2017] [facility]: [id number] Note: VIS QEZEV7Zpeiw Note: VIS JUMOD05Djigb Note: VIS given11 Admin Note: VIS [address] dose Medications acetaminophen 325 mg oral tablet 650 mg, 2, tablet, By Mouth, Every 8 hours, PRN, not to exceed 4000 mg/day Call after 72 hours if not resolved, # 18 tablet, Refills 5, Tot. Refills 5, Maintenance, for fever, 06/11/19 9:27:00 EDT, Route to Pharmacy Electronically, [facility]-... Start Date: 06/11/19 Stop Date: 06/29/19 Status: OrderedAmmonium Lactate 12% Topical Topically, 2 times a day, 0 Refills, Maintenance Start Date: 02/28/17 Status: Orderedbacitracin topical 500 u/gm ointment See Instructions, APPLY A THIN LAYER TWICE A DAY NEEDED FOR MINOR CUTS AND SCRAPES TO PREVENT INFECTI, # 28 Gm, 1 Refills, Acute, [facility]-70171, 15, APPLY A THIN LAYER TWICE A [...] 01/14/20 7:35:00 EDT, Route to Pharmacy Electronically, [facility] [place]-[address], 166, c... Start Date: 01/14/20 Status: OrderedCelexa Tablet 60 mg, Daily at bedtime, Refills 0, Tot. Refills 0, Maintenance, 06/06/06 14:39:21 Start Date: 06/06/06 Status: OrderedClaritin 10 mg oral tablet 10 mg, 1, tablet, By Mouth, Daily at bedtime, # 30 tablet, Refills 5, Tot. Refills 5, Maintenance, 12/30/19 14:05:00 EDT, Route to Pharmacy Electronically, [place] [id number], 166, cm, 12/29/19 11:45:00 EDT, Height Start [...] each, 5 Refills, Maintenance, 01/18/20 12:10:00 EDT, [facility] [place]- [address], 166, cm, 12/29/19 11:45:00 EDT, Height Start Date: 01/18/20 Status: OrderedFlonase 50 mcg/inh nasal spray 1 sprays, Nares, Both, 2 times a day, in each nostril, # 2 each, 0 Refills, Maintenance, 09/05/18 8:52:13 EDT, [place], 1 sprays Nares, Both 2 times a [...] 8:52:32 EDT, Route to Pharmacy Electronically, NCPDP_ID- [id number], [facility]... Start Date: 09/05/18 Status: OrderedImodium A-D 2 [...] 01/26/20 13:34:00 EST, Route to Pharmacy Electronically, [facility]03340, 166, cm, 12/29/19 11:45:00 EDT, Height Start [...] Replace Required Details, Route to Pharmacy Electronically, NCP[facility]_ID-[id number], [facility] Start Date: 09/05/18 Status: OrderedVitamin D3 1000 intl units oral capsule See Instructions, 1 capsule By Mouth Daily in pm, # 30 tablet, 5 Refills, Maintenance, 01/27/20 9:56:00 EST, Capsule, [facility] [place]-[address], 166, cm, 12/29/19 11:45:00 EDT, Height Start [...]
--- OUTSIDE RECORDS SUMMARY | 2022-01-10 20:21 | XMS_ITS | Continuity of Care Document ---
:1975 Author Organization [facility] Address [address] [place] [address]- Care Team Providers Name Role Phone Jose Ulloa MD Primary Care Physician Encounter [facility] Date(s): 08/11/20 - 08/18/20 [facility] [address] [place], [place] [address] Attending Physician: Jose Ulloa MD Allergies, Adverse [...] (old term)10 06/07/11 Given hepatitis B adult [id number] 05/09/11 Given Pneumococcal Vaccine (oldterm) 03/25/05 Given tetanus-diphtheria toxoids (Td) 03/25/03 Given 1Result Comment: [id number] Comment: [03/06/2018] [id number] Comment: [02/02/2015] all screening questions [id number] Note: vis Admin Note: vis 4-0-694Qngqm Note: VIS:Result Comment: [02/28/2017] [facility]: [id number] Note: VIS [id number] Note: VIS ZPHRI21Wegnx Note: VIS given11 Admin Note: VIS [address] dose Medications acetaminophen 325 mg oral tablet 650 mg, 2, tablet, By Mouth, Every 8 hours, PRN, not to exceed 4000 mg/day Call after 72 hours if not resolved, # 18 tablet, Refills 5, Tot. Refills 5, Maintenance, for fever, 06/11/19 9:27:00 EDT, Route to Pharmacy Electronically, [facility]-... Start Date: 06/11/19 Stop Date: 06/29/19 Status: OrderedAmmonium Lactate 12% Topical Topically, 2 times a day, 0 Refills, Maintenance Start Date: 02/28/17 Status: Orderedbacitracin topical 500 u/gm ointment See Instructions, APPLY A THIN LAYER TWICE A DAY NEEDED FOR MINOR CUTS AND SCRAPES TO PREVENT INFECTI, # 28 Gm, 1 Refills, Physician Stop 05/24/21 12:00:00 EST, 06/15/20 9:09:00 EDT, [facility]-16769, 15, APPLY A THIN LAYER TWICE... Start [...] tablet, 12 Refills, Maintenance, 07/14/20 13:11:00 EDT, [facility]-68522, 166, cm, 07/14/20 13:07:00 EDT, Height Start [...] each, 5 Refills, Maintenance, 07/14/20 13:11:00 EDT, [facility]- 18529, 166, cm, 07/14/20 13:07:00 EDT, Height Start Date: 07/14/20 Status: Orderedfluticasone 50 mcg/inh nasal spray See Instructions, INSTILL 1 SPRAY INTO EACH NOSTRIL TWICE A DAY, # 16 Gm, 3 Refills, Maintenance, [facility]389, 30, INSTILL 1 SPRAY INTO EACH NOSTRIL [...] 07/14/20 13:11:00 EDT, Route to Pharmacy Electronically, [facility]-0... Start Date: 07/14/20 Status: OrderedImodium [...] 13:11:00 EDT, Route to Pharmacy Electronically, [facility]64622, 166, cm, 07/14/20 13:07:00 EDT, Height Start [...] tablet, 12 Refills, Maintenance, 07/14/20 13:11:00 EDT, [facility]-85349, 166, cm, 07/14/20 13:07:00 EDT, Height Start Date: 07/14/20 Status: OrderedRisperDAL 0.5 mg oral tablet See Instructions, PRN, tab BID, # 60 each, Refills 0, Tot. Refills 0, Maintenance, take at 4pm and 7pm, 07/14/20 13:11:00 EDT, Instructions Replace Required Details, Route to Pharmacy Electronically, [facility]-49398, 166, cm, ... Start Date: 07/14/20 Status: OrderedVitamin D3 1000 intl units oral capsule See Instructions, 1 capsule By Mouth Daily in pm, # 30 tablet, 5 Refills, Maintenance, 07/14/20 13:11:00 EDT, Capsule, [facility]-34729, 166, cm, 07/14/20 13:07:00 EDT, Height Start Date: 07/14/20 Status: OrderedVitamin D3 1000 intl units oral tablet 1 tablet = 1,000 International_Units, By Mouth, Daily, with food, # 30 tablet, 11 Refills, Maintenance, 07/14/20 13:14:00 EDT, Tablet, [facility]-12839, Partial fill upon patient request if the [...] oldest [Reference Range]: 1 Height 166 cm (08/11/20 7:50 AM) Social History Social History Type Response Smoking Status Never smoker entered on: 08/01/16 Sex
--- OUTSIDE RECORDS SUMMARY | 2022-01-10 20:21 | XMS_ITS | Continuity of Care Document ---
:1975 Author Organization [facility] Address [address] [place] [address]- Care Team Providers Name Role Phone Jose Ulloa MD Primary Care Physician Encounter [facility] Date(s): 09/06/21 - 10/06/21 [facility] [address] [place] [address]- [place] Allergies, Adverse Reactions, Alerts Substance Reaction [...] (old term)10 06/07/11 Given hepatitis B adult [id number] 05/09/11 Given Pneumococcal Vaccine (oldterm) 03/25/05 Given tetanus-diphtheria toxoids (Td) 03/25/03 Given 1Result Comment: [id number] Comment: [03/06/2018] [id number] Comment: [02/02/2015] all screening questions [id number] Note: vis Admin Note: vis 3-9-966Tmfya Note: VIS:Result Comment: [02/28/2017] [place]: [id number] Note: VIS DPDIM7Hnqeg Note: VIS UPPKO11Hrqou Note: VIS given11 Admin Note: VIS 1211 [...] 5 Refills, Maintenance, 08/30/20 11:33:00 EDT, Cream, [facility]/pharmacy #1972, Partial fill upon [...] tablet, 12 Refills, Maintenance, 07/14/20 13:11:00 EDT, [facility]-50487, 166, cm, 07/14/20 13:07:00 EDT, Height Start [...] INGESTED FOOD, # 2 each, 0 Refills, [facility]76923, 166, cm, 08/11/20 7:50:00 EDT, Height Start Date: 09/06/21 Status: OrderedFiberlax 625 mg oral tablet 1 tablet, By Mouth, Daily, AT 4PM., # 28 tablet, 11 Refills, [facility] 11371, 166, cm, 08/11/20 7:50:00 EDT, Height Start Date: 01/23/21 Status: Orderedfluticasone 50 mcg/inh nasal spray See Instructions, INSTILL 1 SPRAY INTO EACH NOSTRIL TWICE A DAY, # 16 Gm, 5 Refills, [facility]36313, 30, INSTILL 1 SPRAY INTO EACH NOSTRIL [...] 07/14/20 13:11:00 EDT, Route to Pharmacy Electronically, [facility]-0... Start Date: 07/14/20 Status: OrderedImodium A-D 2 mg oral tablet 2 mg, 1, tablet, By Mouth, 3 times a day, PRN, # 30 tablet, Refills 3, Tot. Refills 3, Maintenance, [facility], 05/10/17 14:08:46 EST, Print Requisition Start Date: 05/10/17 Status: Orderedlisinopril 10 mg oral tablet 1, tablet, By Mouth, Daily, # 28 tablet, Refills 0, Route to Pharmacy Electronically, [facility]92332, 166, cm, 08/11/20 7:50:00 EDT, Height Start [...] at bedtime, # 28 tablet, 12 Refills, [facility] [address], 166, cm, 08/11/20 7:50:00 EDT, Height Start Date: 08/13/21 Status: Orderedpimecrolimus topical cream 1 application, Topically, 2 times a day, apply and rub in well, # 30 Gm, 1 Refills, Maintenance, 08/30/20 11:34:00 EDT, Cream, [facility]/pharmacy #1972, Partial fill upon patient request if the prescription is for a schedule II opioid drug., 1 application T... Start Date: 08/30/20 Stop Date: 10/29/20 Status: OrderedrisperiDONE 0.5 mg oral tablet 1, tablet, By Mouth, 2 times a day, AT 4PM AND 7PM., # 56 tablet, Refills 12, Tot. Refills 0, Maintenance, 09/14/20 16:44:00 EDT, [facility], cm, 08/11/20 7:50:00 EDT, Height Start Date: 09/14/20 Status: OrderedVitamin D3 1000 intl units oral capsule See Instructions, 1 capsule By Mouth Daily in pm, # 30 tablet, 5 Refills, Maintenance, 07/14/20 13:11:00 EDT, Capsule, [facility]-58060, 166, cm, 07/14/20 13:07:00 EDT, Height Start Date: 07/14/20 Status: OrderedVitamin D3 1000 intl units oral tablet 1 tablet = 1,000 International_Units, By Mouth, Daily, with food, # 30 tablet, 11 Refills, Maintenance, 07/14/20 13:14:00 EDT, Tablet, [facility], Partial fill upon patient request if the [...]
--- OUTSIDE RECORDS SUMMARY | 2022-01-10 20:21 | XMS_ITS | Continuity of Care Document ---
:1975 Author Organization [email or web address] Address [address] [place] [address]- Care Team Providers Name Role Phone Jose Ulloa MD Primary Care Physician Encounter [facility] NBR [id number] Date(s): 08/18/19 - 12/16/19 [email or web address] [address] [place] [address]- Attending Physician: Jose Ulloa MD Allergies, Adverse [...] (old term)10 06/07/11 Given hepatitis B adult [id number] 05/09/11 Given Pneumococcal Vaccine (oldterm) 03/25/05 Given tetanus-diphtheria toxoids (Td) 03/25/03 Given 1Result Comment: [id number] Comment: [03/06/2018] [id number] Comment: [02/02/2015] all screening questions [id number] Note: vis Admin Note: vis [id number] Note: VIS:Result Comment: [02/28/2017] [facility]: [id number] Note: VIS [id number] Note: VIS [id number] Note: VIS given11 Admin Note: VIS 1211 [...] 28 Gm, 1 Refills, Acute, [facility]-[id number], 15, APPLY A THIN LAYER TWICE A [...] 08/20/19 15:32:00 EDT, Route to Pharmacy Electronically, [facility], 166,... Start Date: 08/20/19 Status: OrderedCelexa Tablet 60 mg, Daily at bedtime, Refills 0, Tot. Refills 0, Maintenance, 06/06/06 14:39:21 Start Date: 06/06/06 Status: OrderedClaritin 10 mg oral tablet 10 mg, 1, tablet, By Mouth, Daily at bedtime, # 30 tablet, Refills 11, Tot. Refills 11, Maintenance,12/18/18 10:07:43 EDT, Route to Pharmacy Electronically, [facility]PDP_[id number], [facility]-[id number] Start Date: 12/18/18 Status: OrderedDesenex Foot 2% [...] each, 0 Refills, Maintenance, 09/05/18 8:52:13 EDT, [facility], 1 sprays Nares, Both 2 times a [...] 8:52:32 EDT, Route to Pharmacy Electronically, NCPDP_ID- [id number], [facility]... Start Date: 09/05/18 Status: Orderedlisinopril 10 mg oral tablet 10 mg, 1, tablet, By Mouth, Daily, # 30 tablet, Refills 11, Tot. Refills 11, Maintenance, 12/18/18 10:07:42 EDT, Route to Pharmacy Electronically, NCPDP_ID- [id number], [id number] Start Date: 12/18/18 Status: OrderedLubriderm Daily Moisturizer [...] Replace Required Details, Route to Pharmacy Electronically, NCPDP_[id number], [id number] Start Date: 09/05/18 Status: OrderedVitamin D3 1000 [...]
[2022-01-10 22:05] VITALS: BP 118/77; PULSE 76; RESP 18; TEMP 36.7; O2SAT 98
[2022-01-10] MEDS: diphenhydrAMINE HCL 25 MG TABLET 50 MG PO (22:06)
[2022-01-10] MEDS: dexAMETHasone 2 MG TABLET 10 MG PO (22:06)
== END 2022-01-10 22:17 | disposition home or self-care (01) ==
PROVIDERS: Emergency Provider Internal Medicine
DX: T78.1XXA Other adverse food reactions, not elsewhere classified, initial encounter (principal); X58.XXXA Exposure to other specified factors, initial encounter
CPT/HCPCS: 99283; J8540; Q0163